=== PATIENT | female | born 1965 | race Caucasian/White ===

== ENCOUNTER 2017-09-12 23:10 | Inpatient (IN) ==
--- NOTE | 2017-09-12 23:14 | Emergency Department Note ---
Disposition Clinical Impression: Hypoxia, COPD exacerbation, Pulmonary nodule Dyspnea Qualifiers: Dyspnea type: unspecified Qualified Code(s): R06.00 - Dyspnea, unspecified Disposition: Admitted As Inpatient Condition: Good Time of Disposition: 02:12 General Adult HPI - General Chief complaint: ED Chest Pain Stated complaint: not feeling well Time Seen by Provider: 09/12/17 23:13 Source: patient Mode of arrival: ambulatory Limitations: no limitations Nursing Notes Reviewed: Yes Vital Signs Reviewed: Yes - History of Present Illness HPI Narrative: Patient is a 52-year-old female with past medical history of COPD. She presents today due to chest pain and shortness of breath. She states that over the past 2 days, she has had shortness of breath, cough, fevers. She also started having left-sided dull chest pain that radiates to her back. Rates it as 6 out of 10. Describes as a dull ache. Does not worsen with exertion. She rates it as a gradually worsening over the past 3 days. She is concerned that she could have pneumonia causing some of these symptoms. She has been taking Motrin at home every 6-8 hours for fever. She uses oxygen chronically, also uses daily inhalers. - Related Data Home Medications Medication Instructions Recorded Confirmed ALPRAZolam [Xanax 1 MG Tablet] 1 mg PO TID 12/29/15 09/13/17 Albuterol Sulfate [Ventolin Hfa] 1 - 2 puff IH Q6H PRN 12/29/15 09/13/17 Carisoprodol [Soma] 350 mg PO Q6H PRN 12/29/15 09/13/17 Gabapentin [Neurontin] 800 mg PO BID 12/29/15 09/13/17 cloNIDine HCl [CloNIDine HCl] 0.1 mg PO TID 12/29/15 09/13/17 Furosemide [Lasix] 10 mg PO DAILY 09/13/17 09/13/17 Promethazine [Phenergan] 25 mg PO TID PRN 09/13/17 09/13/17 Previous Rx's Medication Instructions Recorded Ondansetron ODT [Zofran ODT] 4 mg SL Q6HR PRN #10 tab.rapdis 12/10/16 Allergies Allergy/AdvReac Type Severity Reaction Status Date / Time azithromycin Allergy Hives Verified 12/04/15 14:22 codeine AdvReac Nausea Verified 12/04/15 14:22 ketorolac [From Toradol] AdvReac Nausea Verified 12/29/15 10:08 ivp dye Allergy Hives Uncoded 12/29/15 10:08 All systems ED: reviewed and negative except as stated. Constitutional: Reports: fever Cardiovascular: Reports: chest pain, dyspnea on exertion Respiratory: Reports: dyspnea Gastrointestinal: Reports: nausea. Denies: abdominal pain, vomiting, diarrhea Neurological: Denies: headache, weakness, numbness, paresthesias Past Medical History - Past Medical History Attestation: Yes The following information was validated with the patient. Source: patient Medical history: Reports: COPD, GERD, kidney stones Surgical history: Reports: appendectomy, cholecystectomy, hysterectomy Psychiatric history: Reports: anxiety - Social History Smoking Status: Current every day smoker Smokeless Tobacco Status: No Alcohol use: Reports: none Drug use: Reports: none Physical Exam - General Limitations: no limitations General appearance: alert, in no apparent distress - Head Head exam: atraumatic, normocephalic, normal inspection - Eye Eye exam: Present: normal appearance, PERRL, EOMI - ENT ENT exam: normal exam, normal oropharynx, mucous membranes moist - Neck Neck exam: Present: normal inspection, full ROM, trachea midline - Chest Chest inspection: Present: normal inspection, symmetric chest wall rise. Absent : tenderness, rash - Respiratory Respiratory exam: Present: other (Bronchitis and left lower lobe, wheezes throughout). Absent: stridor, accessory muscle use - Cardiovascular Cardiovascular exam: Present: normal rhythm, tachycardia, normal heart sounds - Abdominal Exam Abdominal exam: Present: soft, Non-Tender. Absent: tenderness, distention, guarding, rebound, rigidity - Extremities Exam Extremities exam: Present: normal inspection, full ROM. Absent: tenderness, pedal edema - Back Exam Back exam: Present: normal inspection, full ROM. Absent: tenderness - Neurological Exam Neurological exam: Present: alert, oriented X3 - Psychiatric Psychiatric exam: Present: normal affect, normal mood - Skin Skin exam: Present: warm, dry, intact, normal color Course Course Narrative: Patient had a temp of 100.6 on presentation. Was also tachycardic. She did have left lower lobe rhonchi, wheezing throughout. Patient has no previous history of IA or heart stents. With fever, cough, shortness of breath, dull chest wall pain, I do feel that this is more likely pneumonia in nature. We will give the patient DuoNeb, prednisone. Also obtain chest x-ray, EKG, troponin. Patient was given Tylenol for fever. 02:13 patient reassessed. She was turned down from 4 L down to 2 L nasal cannula and she dropped to 87%. She states that she usually only requires oxygen at night and does not require any during the day. She is still having some dyspnea. Chest x-ray showed nodular opacities that could be inflammatory in nature. These were discussed with the patient and recommended repeat imaging , likely CT scan in a few months for reassessment. Due to increased oxygen requirements, continued dyspnea, will admit the patient for COPD exacerbation and further care. We will give the patient a dose of Levaquin for COPD exacerbation. Chest X-Ray 09/12/17 23:25 IMPRESSION: Nodular opacities in the left mid to lower lung, which are not well visualized previously. Although those could be inflammatory, further evaluation with chest CT is recommended. D/ / Ben Silva MD / Ben Silva MD Interpreting Provider: Ben Silva MD Vital Signs Temperature 100.6 F H 09/12/17 23:17 Pulse Rate 100 09/12/17 23:17 Respiratory Rate 20 09/12/17 23:17 Blood Pressure 137/88 09/12/17 23:17 O2 Sat by Pulse Oximetry 86 09/12/17 23:17 Temperature 98.6 F 09/13/17 03:43 Pulse Rate 78 09/13/17 03:43 Respiratory Rate 18 09/13/17 03:43 Blood Pressure 113/95 09/13/17 03:43 O2 Sat by Pulse Oximetry 92 09/13/17 03:43 Oxygen Delivery Oxygen Delivery Room Air Medical Decision Making - MDM Narrative Medical decision making narrative: Patient had a temp of 100.6 on presentation. Was also tachycardic. She did have left lower lobe rhonchi, wheezing throughout. Patient has no previous history of IA or heart stents. With fever, cough, shortness of breath, dull chest wall pain, I do feel that this is more likely pneumonia in nature. We will give the patient DuoNeb, prednisone. Also obtain chest x-ray, EKG, troponin. Patient was given Tylenol for fever. 02:13 patient reassessed. She was turned down from 4 L down to 2 L nasal cannula and she dropped to 87%. She states that she usually only requires oxygen at night and does not require any during the day. She is still having some dyspnea. Chest x-ray showed nodular opacities that could be inflammatory in nature. These were discussed with the patient and recommended repeat imaging , likely CT scan in a few months for reassessment. Due to increased oxygen requirements, continued dyspnea, will admit the patient for COPD exacerbation and further care. We will give the patient a dose of Levaquin for COPD exacerbation. - Medical Records Medical records reviewed: Yes I reviewed the patient's medical records. - Lab Data Lab results reviewed: Yes I reviewed the patient's lab results. Result diagrams: 09/12/17 23:35 09/13/17 00:52 Lab Results 09/12/17 09/12/17 09/12/17 Range/Units 23:23 23:25 23:35 WBC 9.9 (4.3-11.1) K/mcL RBC 4.27 (3.82-4.97) M/mcL Hgb 14.1 (11.5-15.4) g/dL Hct 42.5 (35.3-44.9) % MCV 99.5 (83.0-100.0) fL MCH 33.0 (28.0-33.3) pg MCHC 33.2 (31.6-35.5) g/dL RDW 13.1 (11.5-14.5) % Plt Count 190 (140-400) K/mcL MPV 10.3 (9.4-12.4) fL Immature Gran % 0.3 (0-4) % Seg Neutrophils % 75.3 % Lymphocytes % 12.9 % Monocytes % 11.1 % Eosinophils % 0.0 % Basophils % 0.4 % Neutrophils # 7.4 (1.6-8.9) K/mcL Lymphocytes # 1.3 (0.6-4.6) K/mcL Monocytes # 1.1 (0.0-1.3) K/mcL Eosinophils # 0.0 (0.0-0.6) K/mcL Basophils # 0.0 (0.0-0.2) K/mcL PT 12.0 (9.4-12.1) Seconds INR 1.1 APTT 31.9 (26.0-36.0) Seconds Sodium Potassium Chloride Carbon Dioxide BUN Creatinine Est GFR ( Amer) Est GFR (Non-Af Amer) BUN/Creatinine Ratio Glucose Calculated Osmolality Calcium Troponin I (< 0.04) ng/mL Urine Color Yellow (Yellow) Urine Clarity Clear (Clear) Urine pH 6.5 (5.0-8.0) pH Units Ur Specific [place] 1.019 (1.010-1.025) Urine Protein 30 H (Neg-Trace) mg/dL Urine Glucose (UA) Normal (Normal) mg/dL Urine Ketones Trace H (Negative) mg/dL Urine Blood Negative (Negative) Urine Nitrite Negative (Negative) Urine Bilirubin Small H (Negative) Urine Urobilinogen Normal (Normal) mg/dL Ur Leukocyte Esterase Negative (Negative) Urine Microscopic RBC 15-30 H (0-3) per hpf Urine Microscopic WBC 3-5 H (0-3) per hpf Ur Squamous Epith Cells Many H (None-Few) per lpf Urine Bacteria None Seen (None-Few) per hpf Hyaline Casts None Seen (None-Few) per lpf 09/12/17 09/13/17 Range/Units 23:35 00:52 WBC (4.3-11.1) K/mcL RBC (3.82-4.97) M/mcL Hgb (11.5-15.4) g/dL Hct (35.3-44.9) % MCV (83.0-100.0) fL MCH (28.0-33.3) pg MCHC (31.6-35.5) g/dL RDW (11.5-14.5) % Plt Count (140-400) K/mcL MPV (9.4-12.4) fL Immature Gran % (0-4) % Seg Neutrophils % % Lymphocytes % % Monocytes % % Eosinophils % % Basophils % % Neutrophils # (1.6-8.9) K/mcL Lymphocytes # (0.6-4.6) K/mcL Monocytes # (0.0-1.3) K/mcL Eosinophils # (0.0-0.6) K/mcL Basophils # (0.0-0.2) K/mcL PT (9.4-12.1) Seconds INR APTT (26.0-36.0) Seconds Sodium Cancelled 139 Potassium Cancelled 2.7 L Chloride Cancelled 100 Carbon Dioxide Cancelled 28 BUN Cancelled 7 Creatinine Cancelled 0.64 Est GFR ( Amer) Cancelled > 60 Est GFR (Non-Af Amer) Cancelled > 60 BUN/Creatinine Ratio Cancelled 11 Glucose Cancelled 134 H Calculated Osmolality Cancelled 288 Calcium Cancelled 8.5 L Troponin I < 0.03 (< 0.04) ng/mL Urine Color (Yellow) Urine Clarity (Clear) Urine pH (5.0-8.0) pH Units Ur Specific [place] (1.010-1.025) Urine Protein (Neg-Trace) mg/dL Urine Glucose (UA) (Normal) mg/dL Urine Ketones (Negative) mg/dL Urine Blood (Negative) Urine Nitrite (Negative) Urine Bilirubin (Negative) Urine Urobilinogen (Normal) mg/dL Ur Leukocyte Esterase (Negative) Urine Microscopic RBC (0-3) per hpf Urine Microscopic WBC (0-3) per hpf Ur Squamous Epith Cells (None-Few) per lpf Urine Bacteria (None-Few) per hpf Hyaline Casts (None-Few) per lpf - Radiology Data Radiology results reviewed: Yes I reviewed the patient's radiology results. - EKG Data EKG #1 EKG attestation: Yes I reviewed and interpreted this EKG. EKG results narrative: 09/12/2017 at 23:21. No sinus rhythm. Rate 92. AL 134. QRS 87. QTC 348. ST depression in the 3 through V6 that is present on previous EKG on 12/04/2015. No acute ST elevation or depression. Critical Care Time Critical Care Time: Yes Total Critical Care Time: 32 Attestation: Acute hypoxia w/ respiratory distress requiring oxygen supplemental oxygenation ; S.B.A.R. - S.B.A.R. Situation: Demographics, MOA Background: Presenting Complaint, Relevant PMH, Meds, & Allergies Assessment: Vital Signs, Course and respsone to treatment, Exam Concerns, Patient/Family Expectation, Pertinant Lab Results Recommendation: Barrier(s) to disposition, Recommendation based on pending studies, treatments, or consults S.B.A.R. Report Given to: Dr. Radha Li Repor Time: 02:19 Attestation Statement - Attestation Attestation: DR Vazquez note: Pt seen in conjunction w/ resident Dr Odell; Please see his chart for complete documentation; I spent face to face time w/ the patient and agree w/ the pt's treatment and disposition; No focal pneumonia on x ray; pt is only on 2 liters oxygen @ night; pt continues to smoke; cough w/ sputum production for 3- 4 days ; no chest pain @ this time;
[2017-09-12 23:31] LABS: Bilirubin,Urine Small (Negative); Blood,Urine Negative (Negative); Clarity,Urine Clear (Clear); Color,Urine Yellow (Yellow); Glucose,Urine (UA) Normal (Normal); Ketones,Urine Trace mg/dL (Negative); Leukocyte Esterase,Urine Negative (Negative); Nitrite,Urine Negative (Negative); PH,Urine 6.5 pH Units (5.0-8.0); Protein,Urine 30 mg/dL (Neg-Trace); Specific Gravity,Urine 1.019 (1.010-1.025); Urobilinogen,Urine Normal (Normal)
[2017-09-12 23:34] LABS: Bacteria,Urine None Seen per hpf (None-Few); Hyaline Casts,Urine None Seen per lpf (None-Few); RBC,Urine 15-30 per hpf (0-3); Squamous Epithelial Cell,Urine Many per lpf (None-Few)
[2017-09-12] MEDS ORDERED: Ipratropium/Albuterol Neb 3 ML IH ONE (23:41)
[2017-09-12] MEDS ORDERED: predniSONE 20 MG TABLET PO ONE (23:41)
[2017-09-13 00:11] LABS: Basophils % 0.4 %; Hematocrit 42.5 % (35.3-44.9); Hemoglobin 14.1 g/dL (11.5-15.4); Immature Granulocytes % 0.3 % (0-4); Lymphocytes # 1.3 K/mcL (0.6-4.6); Lymphocytes % 12.9 %; Mean Corpuscular HGB Conc 33.2 g/dL (31.6-35.5); Mean Corpuscular Volume 99.5 fL (83.0-100.0); Mean Platelet Volume 10.3 fL (9.4-12.4); Monocytes # 1.1 K/mcL (0.0-1.3); Monocytes % 11.1 %; Neutrophils # 7.4 K/mcL (1.6-8.9); Platelet Count 190 K/mcL (140-400); Red Blood Count 4.27 M/mcL (3.82-4.97); Red Cell Distribution Width 13.1 % (11.5-14.5); Segmented Neutrophils % 75.3 %
[2017-09-13 00:16] LABS: INR 1.1
[2017-09-13 00:19] LABS: Activated Partial Thrombo Time 31.9 Seconds (26.0-36.0)
[2017-09-13 01:20] LABS: BUN/Creatinine Ratio 11 (6-26); Blood Urea Nitrogen 7 mg/dL (6-20); Calcium 8.5 mg/dL (8.6-10.3); Carbon Dioxide 28 mEq/L (23-29); Chloride 100 mEq/L (98-107); Glucose 134 mg/dL (70-105); Osmolality,Calculated 288 (280-300); Potassium 2.7 mEq/L (3.5-5.1); Sodium 139 mEq/L (136-145); eGFR For African Americans > 60 (> 60); eGFR For Non-African Americans > 60 (> 60)
[2017-09-13] MEDS ORDERED: Azithromycin 250 MG TABLET PO ONE (02:12)
[2017-09-13] MEDS ORDERED: levoFLOXacin 500 MG TABLET PO ONE (02:19)
[2017-09-13] MEDS ORDERED: Albuterol 2.5 MG/3 ML NEBULIZER IH PRN (02:21)
[2017-09-13] MEDS ORDERED: Naloxone 0.4 MG/ML INJ IVP PRN (02:25)
--- NOTE | 2017-09-13 02:31 | Internal Med History&Physical ---
Date of Encounter: 09/13/17 Time of Encounter: 03:43 Internal Medicine - H&P: HPI Chief complaint: Cough,, fever, SOB Admitted From: Home Plans for Post Hospital Care: Home History of present illness: Ms. Gomes is a 52 year old female with PMH of COPD , tobacco abuse who presented with complains of 3 days of rhinorrhea, followed by cough, now productive of yelowish sputum. She also reports fevers at home requiring use of OTC RTC. She reports SOB and pleuritic chest pain L>R. She did not feel relieved by using OTC allergy medications and decided to present to the ER. She is found to be hypoxic in the ER and febrile. Work up shows bilateral infectious/inflammatory nodules, suspicion for pneumonia. EKG is unremarkable for ischemic changes Patient will be admitted and managed for same ROS is otherwise non-contributory Past Med Surg Social Fam HX - Past Medical History Medical history: COPD, GERD, kidney stones Psychiatric history: anxiety - Past Surgical History Surgical History: appendectomy, cholecystectomy, hysterectomy - Social History Smoking Status: Current every day smoker Smokeless Tobacco Status: No Alcohol use: none Drug use: none Internal Medicine - H&P: Meds ALPRAZolam [Xanax 1 MG Tablet] 1 mg PO TID 12/29/15 [History] Albuterol Sulfate [Ventolin Hfa] 1 - 2 puff IH Q6H PRN 12/29/15 [History] Carisoprodol [Soma] 350 mg PO Q6H PRN 12/29/15 [History] Gabapentin [Neurontin] 800 mg PO BID 12/29/15 [History] cloNIDine HCl [CloNIDine HCl] 0.1 mg PO TID 12/29/15 [History] Ondansetron ODT [Zofran ODT] 4 mg SL Q6HR PRN #10 tab.rapdis 12/10/16 [Rx] Furosemide [Lasix] 10 mg PO DAILY 09/13/17 [History] Promethazine [Phenergan] 25 mg PO TID PRN 09/13/17 [History] 3 Allergy/AdvReac Type Severity Reaction Status Date / Time azithromycin Allergy Hives Verified 12/04/15 14:22 codeine AdvReac Nausea Verified 12/04/15 14:22 ketorolac [From Toradol] AdvReac Nausea Verified 12/29/15 10:08 ivp dye Allergy Hives Uncoded 12/29/15 10:08 All Systems PM: A 10-system review of systems was performed and is negative for pertinent findings except as documented above in the HPI. - Constitutional Constitutional: chills, fever(s), lethargy - EENT Eyes: no change in vision, no discharge, no pain, no photophobia Ears: as per HPI Nose, mouth and throat: no dysphagia, no nasal discharge, no neck pain, no sore throat - Cardiovascular Cardiovascular ROS IM: chest pain - Respiratory Respiratory: cough, dyspnea - Gastrointestinal Gastrointestinal: no abdominal pain, no diarrhea, no hematemesis, no hematochezia, no melena, no nausea, no vomiting - Genitourinary Genitourinary: no change in urinary stream, no dysuria, no flank pain, no hematuria - Musculoskeletal Musculoskeletal ROS IM: no numbness, no tingling - Integumentary Integumentary IM: no rash, no unusual bruising - Neurological Neurological ROS: no confusion, no convulsions, no focal weakness, no numbness, no tingling, no tremor(s) - Hematologic/Lymphatic Hematologic/Lymphatic: no easy bruising - Constitutional Vitals: Temp Pulse Resp BP Pulse Ox 100.6 F H 77 18 110/76 95 09/12/17 23:17 09/13/17 02:22 09/13/17 02:22 09/13/17 02:22 09/13/17 02:22 General appearance: Present: mild distress, A&O X 3, pleasant - Head Head exam: Present: atraumatic, normocephalic - Eye Eye exam: Present: PERRL, conjuntiva pink, sclera anicteric Pupils: Present: PERRL - Neck Neck exam general surgery: Present: supple, trachea midline. Absent: lymphadenopathy - Respiratory Respiratory exam: Present: rhonchi (R>L), wheezes - Cardiovascular Cardiovascular exam: Present: RRR, +S1, +S2. Absent: diastolic murmur, gallop, rubs, systolic murmur - GI/Abdominal GI/Abdominal exam: Present: normal bowel sounds, soft, no peritoneal signs. Absent: distended, tenderness - Extremities Exam Extremities exam: Present: warm, radial pulses palpable and symmetrical. Absent : calf tenderness, cyanotic, pedal edema - Neurological Exam Neurological exam: Present: alert, CN II-XII intact, oriented X3, no focal deficits. Absent: pronater drift, facial droop, speech deficit - Skin Skin exam: Present: dry, intact Internal Med - H&P Results - Labs CBC & Chem 7: 09/12/17 23:35 09/13/17 00:52 Labs: Short CBC 09/12/17 Range/Units 23:35 WBC 9.9 (4.3-11.1) K/mcL Hgb 14.1 (11.5-15.4) g/dL Hct 42.5 (35.3-44.9) % Plt Count 190 (140-400) K/mcL Neutrophils # 7.4 (1.6-8.9) K/mcL BMP 09/12/17 09/13/17 23:35 00:52 Sodium Cancelled 139 Potassium Cancelled 2.7 L Chloride Cancelled 100 Carbon Dioxide Cancelled 28 BUN Cancelled 7 Creatinine Cancelled 0.64 Glucose Cancelled 134 H Calcium Cancelled 8.5 L Cardiac Enzymes 09/12/17 Range/Units 23:35 Troponin I < 0.03 (< 0.04) ng/mL Urine 09/12/17 Range/Units 23:23 Urine Color Yellow (Yellow) Urine Clarity Clear (Clear) Urine pH 6.5 (5.0-8.0) pH Units Ur Specific [place] 1.019 (1.010-1.025) Urine Protein 30 H (Neg-Trace) mg/dL Urine Glucose (UA) Normal (Normal) mg/dL - Impressions ITS Impressions Chest X-Ray 09/12/17 23:25 IMPRESSION: Nodular opacities in the left mid to lower lung, which are not well visualized previously. Although those could be inflammatory, further evaluation with chest CT is recommended. D/ / Ben Silva MD / Ben Silva MD Interpreting Provider: Ben Silva MD - Assessment and plan (1) Sepsis Current Visit: Yes Status: Acute Assessment and plan: Patient met sepsis criteria with HR 100 on presentation, Temp 100.6, and source being multifocal PNA She is requring higher dose of supplemental O2 but is hemodynamically stable Blood cultures not drawn Obtain sputum cultures, Obtain urine for legionella and strept Ag Give additional dose of levaquin 250mg IV, continue IV Levaquin 750mg IV daily from 09/14 Continue supportive care Qualifiers: Sepsis type: sepsis due to unspecified organism Qualified Code(s): A41.9 - Sepsis, unspecified organism (2) Pneumonia Current Visit: Yes Status: Acute Assessment and plan: as above CT with multiple nodules, likely infectious with patient's hx of fevers and chills, cough with sputum as well as recent sick contacts Continue levaquin Follow PNA work up as above Qualifiers: Pneumonia type: due to unspecified organism Laterality: left Lung location: unspecified part of lung Qualified Code(s): J18.9 - Pneumonia, unspecified organism (3) COPD exacerbation Current Visit: Yes Status: Acute Assessment and plan: Duonebs q4 TITUS, alb q2h prn, prednusone daily, levaquin O2 supplement continuous (4) Hypoxia Current Visit: Yes Status: Acute Assessment and plan: secondary to PNA and COPDE Continue supplemental O2 by NC (5) Hypokalemia Current Visit: Yes Status: Acute Assessment and plan: replace po rpt chem am (6) Pulmonary nodule Current Visit: Yes Status: Acute Assessment and plan: Multiple pulmonary nodules, possibly infectious due to PNA Patient educated about the need repeat chest CT on outpatient basis after completion of pneumonia treatment. (7) Tobacco abuse Current Visit: Yes Status: Acute Assessment and plan: Counselled on cessation Nicotine patch - Time Spent With Patient Total time spent is greater than 50% in coordination of care (as documented) at patient's floor/unit and/or counseling patient:
[2017-09-13] MEDS ORDERED: Levofloxacin 250 MG/50 ML 250 MG/50 ML BAG IVPB ONE (03:28)
[2017-09-13] MEDS: Ipratropium/Albuterol Neb 3 ML IH SCH ×4 (04:09→22:30)
[2017-09-13 06:14] LABS: Basophils % 0.2 %; Hematocrit 42.5 % (35.3-44.9); Immature Granulocytes % 0.3 % (0-4); Lymphocytes # 0.4 K/mcL (0.6-4.6); Lymphocytes % 5.9 %; Mean Corpuscular HGB Conc 32.9 g/dL (31.6-35.5); Mean Corpuscular Hemoglobin 33.2 pg (28.0-33.3); Mean Corpuscular Volume 100.7 fL (83.0-100.0); Monocytes # 0.1 K/mcL (0.0-1.3); Monocytes % 2.1 %; Neutrophils # 6.1 K/mcL (1.6-8.9); Platelet Count 169 K/mcL (140-400); Red Blood Count 4.22 M/mcL (3.82-4.97); Red Cell Distribution Width 12.9 % (11.5-14.5); Segmented Neutrophils % 91.5 %
[2017-09-13 06:30] LABS: Alanine Aminotransferase 5 Units/L (7-52); Albumin 4.1 g/dL (3.5-5.7); Albumin/Globulin Ratio 1.2 (1.1-2.2); Alkaline Phosphatase 74 Units/L (34-104); Aspartate Amino Transferase 12 Units/L (13-39); BUN/Creatinine Ratio 11 (6-26); Bilirubin,Total 0.2 mg/dL (0.3-1.0); Blood Urea Nitrogen 8 mg/dL (6-20); Calcium 8.6 mg/dL (8.6-10.3); Carbon Dioxide 30 mEq/L (23-29); Chloride 101 mEq/L (98-107); Globulin 3.4 g/dL (2.4-3.5); Glucose 173 mg/dL (70-105); Osmolality,Calculated 290 (280-300); Potassium 2.9 mEq/L (3.5-5.1); Sodium 139 mEq/L (136-145); Total Protein 7.5 g/dL (6.4-8.9); eGFR For African Americans > 60 (> 60); eGFR For Non-African Americans > 60 (> 60)
[2017-09-13] MEDS: *HR* Enoxaparin 40 MG/0.4 ML SYRINGE SQ SCH (06:51)
[2017-09-13] MEDS: Nicotine 21 MG PATCH.TD24 TD SCH (09:18)
[2017-09-13] MEDS: ALPRAZolam 1 MG TABLET PO SCH ×3 (09:18→20:06)
[2017-09-13] MEDS: Gabapentin 400 MG CAPSULE PO SCH ×2 (09:19→20:07)
[2017-09-13] MEDS: Furosemide 20 MG TABLET PO SCH (09:19)
[2017-09-13] MEDS: cloNIDine HCl 0.1 MG TABLET PO SCH ×3 (09:19→20:06)
[2017-09-13] MEDS: predniSONE 20 MG TABLET PO SCH (09:19)
[2017-09-13] MEDS: Acetaminophen 325 MG TABLET PO PRN ×2 (09:21→20:10)
--- NOTE | 2017-09-13 09:34 | Internal Med History&Physical ---
Date of Encounter: 09/13/17 Time of Encounter: 08:00 Internal Medicine - H&P: HPI History of present illness: Ms. Gomes is a 52 year old female Past Med Surg Social Fam HX - Past Medical History Medical history: COPD, GERD, kidney stones Psychiatric history: anxiety - Past Surgical History Surgical History: appendectomy, cholecystectomy, hysterectomy - Social History Smoking Status: Current every day smoker Smokeless Tobacco Status: No Alcohol use: none Drug use: none - Family History Mother History Unknown: Yes Internal Medicine - H&P: Meds ALPRAZolam [Xanax 1 MG Tablet] 1 mg PO TID 12/29/15 [History] Albuterol Sulfate [Ventolin Hfa] 1 - 2 puff IH Q6H PRN 12/29/15 [History] Carisoprodol [Soma] 350 mg PO Q6H PRN 12/29/15 [History] Gabapentin [Neurontin] 800 mg PO BID 12/29/15 [History] cloNIDine HCl [CloNIDine HCl] 0.1 mg PO TID 12/29/15 [History] Ondansetron ODT [Zofran ODT] 4 mg SL Q6HR PRN #10 tab.rapdis 12/10/16 [Rx] Furosemide [Lasix] 10 mg PO DAILY 09/13/17 [History] Ibuprofen [Motrin] 200 - 400 mg PO Q4-6H PRN 09/13/17 [History] Promethazine [Phenergan] 25 mg PO TID PRN 09/13/17 [History] 3 Allergy/AdvReac Type Severity Reaction Status Date / Time azithromycin Allergy Hives Verified 09/13/17 08:48 codeine AdvReac Nausea Verified 09/13/17 08:48 ketorolac [From Toradol] AdvReac Nausea Verified 09/13/17 08:48 ivp dye Allergy Hives Uncoded 12/29/15 10:08 All Systems PM: A 10-system review of systems was performed and is negative for pertinent findings except as documented above in the HPI. - Constitutional Constitutional: no chills, no fever(s), no night sweats - Cardiovascular Cardiovascular ROS IM: no chest pain, no diaphoresis, no edema, no lightheadedness, no palpitations, no syncope - Respiratory Respiratory: cough, dyspnea on exertion, pain on inspiration (mild inspiratory pain), no wheezing, no stridor, no chest congestion - Gastrointestinal Gastrointestinal: no abdominal pain, no diarrhea, no hematemesis, no hematochezia, no melena, no nausea, no vomiting - Integumentary Integumentary IM: no rash, no unusual bruising - Constitutional Vitals: Temp Pulse Resp BP Pulse Ox 98.6 F 79 15 118/79 93 09/13/17 07:43 09/13/17 07:43 09/13/17 07:43 09/13/17 07:43 09/13/17 07:43 General appearance: Present: mild distress, A&O X 3, pleasant - Eye Eye exam: Present: PERRL - Respiratory Respiratory exam: Present: CTAB (diminished/clear), prolonged expiratory phase. Absent: accessory muscle use, chest wall tenderness, rales, respiratory distress, rhonchi, wheezes, tachypnea Additional comments: no conversational dyspnea - Cardiovascular Cardiovascular exam: Present: RRR, +S1, +S2. Absent: diastolic murmur, gallop, rubs, systolic murmur, tachycardia - GI/Abdominal GI/Abdominal exam: Present: normal bowel sounds, soft, no peritoneal signs. Absent: distended, tenderness - Extremities Exam Extremities exam: Present: warm, radial pulses palpable and symmetrical. Absent : calf tenderness, cyanotic, pedal edema - Neurological Exam Neurological exam: Absent: facial droop, speech deficit - Skin Skin exam: Present: dry, intact Internal Med - H&P Results - Labs CBC & Chem 7: 09/13/17 05:14 09/13/17 05:14 Labs: Short CBC 09/13/17 Range/Units 05:14 WBC 6.7 (4.3-11.1) K/mcL Hgb 14.0 (11.5-15.4) g/dL Hct 42.5 (35.3-44.9) % Plt Count 169 (140-400) K/mcL Neutrophils # 6.1 (1.6-8.9) K/mcL BMP 09/13/17 05:14 Sodium 139 Potassium 2.9 L Chloride 101 Carbon Dioxide 30 H BUN 8 Creatinine 0.71 Glucose 173 H Calcium 8.6 Liver Function 09/13/17 Range/Units 05:14 Total Bilirubin 0.2 L (0.3-1.0) mg/dL AST 12 L (13-39) Units/L ALT 5 L (7-52) Units/L Alkaline Phosphatase 74 (34-104) Units/L Albumin 4.1 (3.5-5.7) g/dL - Impressions Impressions Chest X-Ray 09/12/17 23:25 IMPRESSION: Nodular opacities in the left mid to lower lung, which are not well visualized previously. Although those could be inflammatory, further evaluation with chest CT is recommended. D/ / Ben Silva MD / Ben Silva MD Interpreting Provider: Ben Silva MD Chest CT 09/13/17 02:21 IMPRESSION: 1. Scattered subsolid pulmonary nodules are most likely infectious or inflammatory. Follow-up CT scan could be obtained in 3-6 months. 2. Coronary artery disease. 3. Emphysema. D/ / Francisco Davies MD / Francisco Davies MD Interpreting Provider: Francisco Davies MD - Assessment and plan (1) Sepsis Current Visit: Yes Status: Acute Qualifiers: Sepsis type: sepsis due to unspecified organism Qualified Code(s): A41.9 - Sepsis, unspecified organism (2) Hypoxia Current Visit: Yes Status: Acute (3) COPD exacerbation Current Visit: Yes Status: Acute (4) Pulmonary nodule Current Visit: Yes Status: Acute (5) Pneumonia Current Visit: Yes Status: Acute Qualifiers: Pneumonia type: due to unspecified organism Laterality: left Lung location: unspecified part of lung Qualified Code(s): J18.9 - Pneumonia, unspecified organism (6) Hypokalemia Current Visit: Yes Status: Acute (7) Tobacco abuse Current Visit: Yes Status: Acute - Time Spent With Patient Total time spent is greater than 50% in coordination of care (as documented) at patient's floor/unit and/or counseling patient:
--- NOTE | 2017-09-13 10:55 | Event Note ---
Date of Encounter: 09/13/17 Time of Encounter: 08:00 Patient presented early this morning with cough productive of yellow sputum and pleuritic chest pain left greater than right and shortness of breath. She was hypoxic on arrival, CT chest revealed multiple nodules likely infectious. She was diagnosed with sepsis secondary to pneumonia She is no longer requiring high flow oxygen mask for respiratory support and reports that her shortness of breath has improved compared to admission. However, she notes that she is still mildly short of breath and that the dyspnea is worsened with activity. No events overnight. She denies any fever or chills. She is still having mild pleuritic chest pain L>R REVIEW OF SYSTEMS GENERAL: Negative for any fevers or chills HEENT: Positive for rhinitis. CARDIAC: Positive for pleuritic chest pain reporting increasing chest pain with inspiration PULMONARY: Positive for mild shortness of breath, worsens with activity GASTROINTESTINAL: Negative for any abdominal pain, nausea, vomiting, bright red blood per rectum, melena. GENITOURINARY: Negative for any dysuria, hematuria, incontinence. INTEGUMENTARY: Negative for any rashes, cuts, insect bites. RHEUMATOLOGIC: Negative for any joint pains, photosensitive rashes, history of vasculitis or kidney problems. HEMATOLOGIC: Negative for any abnormal bruising, frequent infections or bleeding. PHYSICAL EXAMINATION: GENERAL: The patient is a well-developed, well-nourished male in no apparent distress. He is alert and oriented x3. HEENT: Head is atraumatic. Extraocular muscles are intact. Pupils are equal, round, and reactive to light and accommodation. Nares appeared normal, no rhinorrhea noted. NECK: Supple. No carotid bruits. No lymphadenopathy or thyromegaly. LUNGS: diminished to auscultation with rhonchi, R>L. HEART: Regular rate and rhythm without murmur rubs or gallops. ABDOMEN: Soft, nontender, and nondistended. Positive bowel sounds. No hepatosplenomegaly was noted. EXTREMITIES: Without any cyanosis, clubbing, rash, lesions or edema. NEUROLOGIC: Cranial nerves II through XII are grossly intact SKIN: No ulceration, rashes or lesions Plan: Sepsis secondary to PNA and COPD exacerbation Hemodynamically stable, heart rate and respiratory rate no improved, she is afebrile Continue antibiotics-Levaquin Continue duo nebs Continue oral steroids Lovenox DVT prophylaxis Decrease oxygen from high flow oxygen mask to 2 L nasal cannula Goals to maintain SPO2 greater than 92%; titrate oxygen flow rate when necessary Still awaiting strep pneumo, Legionella antigen and sputum culture results Hypoxia See plan above Hypokalemia Potassium replaced early this morning, no repeat serum potassium since replacement Recheck serum potassium this afternoon and replace when necessary for potassium less than 3.5 Pulmonary nodule Pulmonary nodule noted per CT, likely infectious etiology due to pneumonia Reinforced patient education on need for follow-up CT on outpatient basis after completion for pneumonia treatment
[2017-09-13] MEDS: Carisoprodol 350 MG TABLET PO PRN ×2 (11:24→20:06)
--- NOTE | 2017-09-13 15:19 | Electrocardiograph Report ---
[address] [place] [address] Test Date: 2017-09-12 Pat Name: Elizabet Gomes Department: [id number] Room: 2NE29 Gender: F Security Systems Engineer: : [id number] Requested By: Subhash Odell Order Number: [id number] Reading MD: Fani Redd Measurements Intervals [place] Rate: 92 P: 70 LA: 134 QRS: 22 QRSD: 87 T: 248 QT: 298 QTc: 348 Interpretive Statements SINUS RHYTHM NONSPECIFIC ST & T-WAVE ABNORMALITY Electronically Signed On 09-13-2017 15:18:04 EDT by Fani Redd
[2017-09-14] MEDS: Carisoprodol 350 MG TABLET PO PRN ×2 (04:11→22:18)
[2017-09-14] MEDS: Ipratropium/Albuterol Neb 3 ML IH SCH ×4 (04:44→23:03)
[2017-09-14] MEDS: *HR* Enoxaparin 40 MG/0.4 ML SYRINGE SQ SCH (05:51)
[2017-09-14] MEDS: Furosemide 20 MG TABLET PO SCH (08:29)
[2017-09-14] MEDS: Gabapentin 400 MG CAPSULE PO SCH ×2 (08:29→22:15)
[2017-09-14] MEDS: cloNIDine HCl 0.1 MG TABLET PO SCH ×3 (08:29→22:15)
[2017-09-14] MEDS: predniSONE 20 MG TABLET PO SCH (08:29)
[2017-09-14] MEDS: Nicotine 21 MG PATCH.TD24 TD SCH (08:29)
[2017-09-14] MEDS: ALPRAZolam 1 MG TABLET PO SCH ×3 (08:29→22:15)
[2017-09-14] MEDS: Levofloxacin 750 MG/150 ML 750 MG/150 ML BAG IVPB SCH (08:30)
[2017-09-14] MEDS ORDERED: Levofloxacin 500 MG/100 ML 500 MG/100 ML BAG IVPB SCH (09:00)
--- NOTE | 2017-09-14 09:11 | Internal Med Progress Note ---
Date of Encounter: 09/14/17 Time of Encounter: 08:45 - Assessment and plan (1) Pneumonia Current Visit: Yes Status: Acute Assessment and plan: as above CT with multiple nodules, likely infectious with patient's hx of fevers and chills, cough with sputum as well as recent sick contacts Continue levaquin Follow PNA work up as above 09/14: Acute bacterial community acquired pneumonia. As mentioned, day #2 of a planned 7 day course of Levaquin. Await any culture data. I do not see blood cultures performed. I will order now. Qualifiers: Pneumonia type: due to unspecified organism Laterality: left Lung location: unspecified part of lung Qualified Code(s): J18.9 - Pneumonia, unspecified organism (2) Sepsis Current Visit: Yes Status: Acute Assessment and plan: Patient met sepsis criteria with HR 100 on presentation, Temp 100.6, and source being multifocal PNA She is requring higher dose of supplemental O2 but is hemodynamically stable Blood cultures not drawn Obtain sputum cultures, Obtain urine for legionella and strept Ag Give additional dose of levaquin 250mg IV, continue IV Levaquin 750mg IV daily from 09/14 Continue supportive care 09/14: Resolving. Blood cultures now ordered (not done on admission). I do not see a Lactic acid level and one is ordered now. Qualifiers: Sepsis type: sepsis due to unspecified organism Qualified Code(s): A41.9 - Sepsis, unspecified organism (3) Hypoxia Current Visit: Yes Status: Acute Assessment and plan: secondary to PNA and COPDE Continue supplemental O2 by [place] 09/14: 42-year-old female with a history of COPD, presents with acute on chronic hypoxemic respiratory failure felt to be due to combined acute bacterial community acquired pneumonia and an acute COPD exacerbation. She reports being exposed to ill children at home. She does have oxygen at home but only uses it occasionally. Patient is day #2 of a planned 7 day course of Levaquin. He continues on prednisone 40 mg by mouth daily. Bronchodilator therapy. I will add Mucinex. She does have pedal edema but I do not suspect she has CHF. She has no history of such. I did stop her Lasix today and will encourage oral intake. Monitor closely. (4) COPD exacerbation Current Visit: Yes Status: Acute Assessment and plan: Duonebs q4 TITUS, alb q2h prn, prednusone daily, levaquin O2 supplement continuous 09/14: As above. Mucolytic added. Acute exacerbation of COPD Discussed with the patient the fact that she absolutely needs to quit smoking. (5) Pulmonary nodule Current Visit: Yes Status: Acute Assessment and plan: Multiple pulmonary nodules, possibly infectious due to PNA Patient educated about the need repeat chest CT on outpatient basis after completion of pneumonia treatment. 09/14: Will need a follow-up chest x-ray in 4 weeks upon discharge from the hospital, and as mentioned above will likely need a follow-up CT as well in 3-6 months. (6) Hypokalemia Current Visit: Yes Status: Acute Assessment and plan: replace po rpt chem am 09/14: Monitor (7) Tobacco abuse Current Visit: Yes Status: Acute Assessment and plan: Counselled on cessation Nicotine patch 09/14: She was counseled today and cessation strongly recommended. I consultation for 10 minutes. She is motivated to quit. - Time Spent With Patient Total time spent is greater than 50% in coordination of care (as documented) at patient's floor/unit and/or counseling patient: 25 - 35 minutes - Subjective Interval history: Ms. Gomes is a 52 year old female with PMH of COPD , tobacco abuse who presented with complains of 3 days of rhinorrhea, followed by cough, now productive of yelowish sputum. She also reports fevers at home requiring use of OTC RTC. She reports SOB and pleuritic chest pain L>R. She did not feel relieved by using OTC allergy medications and decided to present to the ER. She is found to be hypoxic in the ER and febrile. Work up shows bilateral infectious/inflammatory nodules, suspicion for pneumonia. EKG is unremarkable for ischemic changes Patient will be admitted and managed for same ROS is otherwise non-contributory 09/14: CC: SOB HPI: Patient states her breathing is much improved this morning. She still has wheezing. She has a cough which is dry and nonproductive. She denies any chest pain. No fevers or chills. No nausea, vomiting, diarrhea. She does complain of pedal edema which is not a new issue. Patient remains on 4 L of oxygen per nasal cannula satting 91%. She has been afebrile since admission. Vitals have remained stable. Review of her CT on admission showed multiple pulmonary nodules concerning for infection. This will need to be followed up as an outpatient. - Constitutional Vitals: Temp Pulse Resp BP Pulse Ox 98.1 F 70 18 111/65 91 09/14/17 07:03 09/14/17 07:03 09/14/17 07:03 09/14/17 07:03 09/14/17 07:03 General appearance: Present: cooperative, mild distress (full sentence dyspnea) , A&O X 3, pleasant - Head Head exam: Present: atraumatic, normocephalic - Eye Eye exam: Present: PERRL, conjuntiva pink, sclera anicteric Pupils: Present: PERRL - Neck Neck exam general surgery: Present: supple, trachea midline. Absent: lymphadenopathy - Respiratory Respiratory exam: Present: decreased breath sounds, rales, wheezes - Cardiovascular Cardiovascular exam: Present: RRR, +S1, +S2. Absent: diastolic murmur, gallop, rubs, systolic murmur - GI/Abdominal GI/Abdominal exam: Present: normal bowel sounds, soft, no peritoneal signs. Absent: distended, tenderness - Extremities Exam Extremities exam: Present: pedal edema - Neurological Exam Neurological exam: Present: CN II-XII intact, oriented X3, no focal deficits. Absent: pronater drift, facial droop, speech deficit - Skin Skin exam: Present: dry, intact Additional comments: Cap refill <2.5 sec Internal Medicine: Result - Labs CBC & Chem 7: 09/13/17 05:14 09/13/17 13:54 - ABG Interpretation ABG results: PT/INR, D-dimer PT 12.0 Seconds (9.4-12.1) 09/12/17 23:25 Consult Discharge Plan - Plan Referrals: Kar Toro MD [Primary Care Provider] -
[2017-09-14] MEDS: Budesonide/Formoterol 80/4.5 MDI IH SCH (23:03)
[2017-09-15 02:15] LABS: Basophils % 0.2 %; Hematocrit 37.5 % (35.3-44.9); Immature Granulocytes % 0.5 % (0-4); Lymphocytes # 1.5 K/mcL (0.6-4.6); Lymphocytes % 17.8 %; Mean Corpuscular HGB Conc 32.8 g/dL (31.6-35.5); Mean Corpuscular Hemoglobin 33.2 pg (28.0-33.3); Mean Corpuscular Volume 101.1 fL (83.0-100.0); Mean Platelet Volume 11.4 fL (9.4-12.4); Monocytes # 0.7 K/mcL (0.0-1.3); Neutrophils # 6.2 K/mcL (1.6-8.9); Platelet Count 179 K/mcL (140-400); Red Blood Count 3.71 M/mcL (3.82-4.97); Red Cell Distribution Width 12.9 % (11.5-14.5); Segmented Neutrophils % 73.5 %
[2017-09-15 02:23] LABS: BUN/Creatinine Ratio 18 (6-26); Blood Urea Nitrogen 13 mg/dL (6-20); Calcium 8.5 mg/dL (8.6-10.3); Carbon Dioxide 29 mEq/L (23-29); Chloride 104 mEq/L (98-107); Glucose 98 mg/dL (70-105); Osmolality,Calculated 290 (280-300); Potassium 3.1 mEq/L (3.5-5.1); Sodium 140 mEq/L (136-145); eGFR For African Americans > 60 (> 60); eGFR For Non-African Americans > 60 (> 60)
[2017-09-15 02:32] LABS: Hemoglobin 12.3 g/dL (11.5-15.4)
[2017-09-15 02:34] LABS: Platelet Estimate Normal (Normal)
[2017-09-15] MEDS: Ipratropium/Albuterol Neb 3 ML IH SCH ×2 (04:51→10:05)
[2017-09-15] MEDS: *HR* Enoxaparin 40 MG/0.4 ML SYRINGE SQ SCH (06:28)
[2017-09-15 07:27] VITALS: BP 105/62
--- NOTE | 2017-09-15 08:13 | Discharge Summary ---
- NOTES TO OUTPATIENT PROVIDER Notes to Outpatient Provider: Follow-up with primary care physician within the next 7 days. Complete 5 more days of Levaquin. Quit smoking. Continue oxygen therapy at home. Prednisone taper as follows:40 mg daily for 5 days, 30 mg daily for 5 days, 20 mg for 5 days and 10 mg for 5 days Orders not resulted at time of discharge: Pending orders 09/14/17 09:47 Culture,Blood [BC] Routine 09/16/17 04:00 BMP [Basic Metabolic Panel] AM 0400 CBC [Complete Blood Count] [HEME] AM 0400 09/17/17 04:00 BMP [Basic Metabolic Panel] AM 0400 CBC [Complete Blood Count] [HEME] AM 0400 Date of Encounter: 09/15/17 Time of Encounter: 08:09 - Discharge Diagnosis (1) Sepsis Priority: Primary Status: Acute Comments: Acute on chronic hypoxic respiratory failure secondary to acute COPD exacerbation due to sepsis from multifocal pneumonia/community-acquired pneumonia unknown agent Qualifiers: Sepsis type: sepsis due to unspecified organism Qualified Code(s): A41.9 - Sepsis, unspecified organism (2) Hypoxia Priority: Primary Status: Acute (3) COPD exacerbation Priority: Primary Status: Acute (4) Pulmonary nodule Priority: Secondary Status: Acute (5) Pneumonia Priority: Primary Status: Acute Qualifiers: Pneumonia type: due to unspecified organism Laterality: left Lung location: unspecified part of lung Qualified Code(s): J18.9 - Pneumonia, unspecified organism (6) Hypokalemia Priority: Secondary Status: Acute (7) Tobacco abuse Priority: Secondary Status: Acute Hospital course: Ms. Gomes is a 52 year old female with PMH of COPD oxygen dependent using 2 L at night, GERD, nephrolithiasis, anxiety , tobacco abuse who presented with complains of 3 days of rhinorrhea, followed by cough, now productive of yelowish sputum. She also reported fevers at home requiring use of OTC RTC. She reported SOB and pleuritic chest pain L>R. She did not feel relieved by using OTC allergy medications and decided to present to the ER. She was found to be hypoxic in the ER and febrile. CT scan of the chest showed multifocal pneumonia, . Scattered subsolid pulmonary nodules are most likely infectious or inflammatory. Follow-up CT scan could be obtained in 3-6 months. 2. Coronary artery disease. 3. Emphysema. Upon admission her temperature was 100.6 and heart rate of 100. Was a started on steroids and Levaquin. Patient's potassium is 3.1 which will be repleted. Stable to be discharged home Time spent discussing smoking cessation with patient: 3 to 10 minutes - Time Spent with Patient Total time spent providing and/or coordinating discharge services: Greater than 30 minutes (40 min) - Discharge Medications Prescriptions: Levofloxacin [Levaquin] 750 mg PO DAILY #5 tablet predniSONE [PredniSONE] 10 mg PO DAILY 20 Days tablet Home Medications: ALPRAZolam [Xanax 1 MG Tablet] 1 mg PO TID 12/29/15 [History] Albuterol Sulfate [Ventolin Hfa] 1 - 2 puff IH Q6H PRN 12/29/15 [History] Carisoprodol [Soma] 350 mg PO Q6H PRN 12/29/15 [History] Gabapentin [Neurontin] 800 mg PO BID 12/29/15 [History] cloNIDine HCl [CloNIDine HCl] 0.1 mg PO TID 12/29/15 [History] Ondansetron ODT [Zofran ODT] 4 mg SL Q6HR PRN #10 tab.rapdis 12/10/16 [Rx] Furosemide [Lasix] 10 mg PO DAILY 09/13/17 [History] Ibuprofen [Motrin] 200 - 400 mg PO Q4-6H PRN 09/13/17 [History] Promethazine [Phenergan] 25 mg PO TID PRN 09/13/17 [History] Dulera 100 Mcg/5 Mcg Inhaler 2 puff IH BID 09/14/17 [History] Levofloxacin [Levaquin] 750 mg PO DAILY #5 tablet 09/15/17 [Rx] predniSONE [PredniSONE] 10 mg PO DAILY 20 Days tablet 09/15/17 [Rx] Allergies/Adverse Reactions: 3 Allergy/AdvReac Type Severity Reaction Status Date / Time azithromycin Allergy Hives Verified 09/13/17 08:48 codeine AdvReac Nausea Verified 09/13/17 08:48 ketorolac [From Toradol] AdvReac Nausea Verified 09/13/17 08:48 ivp dye Allergy Hives Uncoded 12/29/15 10:08 Date of admission: 09/13/17 20:18 Primary care physician: Kar Toro MD - Constitutional Vitals: Temp Pulse Resp BP Pulse Ox 97.7 F 68 18 105/62 92 09/15/17 07:26 09/15/17 07:26 09/15/17 07:26 09/15/17 07:26 09/15/17 07:26 General appearance: Present: cooperative, mild distress (full sentence dyspnea) , A&O X 3, pleasant - Head Head exam: Present: atraumatic, normocephalic - Eye Eye exam: Present: PERRL, conjuntiva pink, sclera anicteric Pupils: Present: PERRL - Neck Neck exam general surgery: Present: supple, trachea midline. Absent: lymphadenopathy - Respiratory Respiratory exam: Present: decreased breath sounds, CTAB. Absent: accessory muscle use, rales, rhonchi, wheezes - Cardiovascular Cardiovascular exam: Present: RRR, +S1, +S2. Absent: diastolic murmur, gallop, rubs, systolic murmur - GI/Abdominal GI/Abdominal exam: Present: normal bowel sounds, soft, no peritoneal signs. Absent: distended, tenderness - Extremities Exam Extremities exam: Present: warm, radial pulses palpable and symmetrical. Absent : calf tenderness, cyanotic, pedal edema - Neurological Exam Neurological exam: Present: CN II-XII intact, oriented X3, no focal deficits. Absent: pronater drift, facial droop, speech deficit - Skin Skin exam: Present: dry, intact - Patient Status Disposition: Home, Self-Care Condition: Good Overall status at discharge: patient is progressing back to baseline - Discharge Instructions Follow Up With: Kar Toro MD [Primary Care Provider] - Additional Instructions: Follow-up with primary care physician within the next 7 days. Complete 5 more days of Levaquin. Quit smoking. Continue oxygen therapy at home. Prednisone taper as follows:40 mg daily for 5 days, 30 mg daily for 5 days, 20 mg for 5 days and 10 mg for 5 days - Diet and Activity Activity: wear oxygen at night Diet: low fat, low cholesterol
[2017-09-15] MEDS: Levofloxacin 750 MG/150 ML 750 MG/150 ML BAG IVPB SCH (08:28)
[2017-09-15] MEDS: ALPRAZolam 1 MG TABLET PO SCH (08:29)
[2017-09-15] MEDS: Gabapentin 400 MG CAPSULE PO SCH (08:29)
[2017-09-15] MEDS: cloNIDine HCl 0.1 MG TABLET PO SCH (08:29)
[2017-09-15] MEDS: predniSONE 20 MG TABLET PO SCH (08:29)
[2017-09-15] MEDS: Nicotine 21 MG PATCH.TD24 TD SCH (08:30)
[2017-09-15] MEDS: Carisoprodol 350 MG TABLET PO PRN (08:35)
[2017-09-15] MEDS ORDERED: levoFLOXacin 750 MG TABLET PO ONE (08:52)
[2017-09-15] MEDS: Budesonide/Formoterol 80/4.5 MDI IH SCH (10:05)
== END 2017-09-15 11:40 | disposition home or self-care (01) | DRG 720 ==
LOC: EMEROO 23:10 → 2NENU 23:10
PROVIDERS: ADMIT Internal Medicine Cardiovascular Disease; ATTEND Internal Medicine Cardiovascular Disease

== ENCOUNTER 2019-07-14 18:08 | Observation (INO) ==
[2019-07-14] MEDS ORDERED: Ipratropium/Albuterol Neb 3 ML IH ONE (18:28)
[2019-07-14] MEDS ORDERED: methylPREDNISolone 125 MG/2 ML VIAL IVP ONE (18:28)
[2019-07-14] MEDS ORDERED: 0.9 % Sodium Chloride 1,000 ML IVC ONE (18:28)
[2019-07-14] MEDS ORDERED: *HR* Promethazine 25 MG/ML VIAL IVP ONE (18:28)
[2019-07-14 20:40] LABS: Bilirubin,Urine Small (Negative); Blood,Urine Negative (Negative); Clarity,Urine Clear (Clear); Color,Urine Yellow (Yellow); Glucose,Urine (UA) Normal (Normal); Ketones,Urine Trace mg/dL (Negative); Leukocyte Esterase,Urine Negative (Negative); Nitrite,Urine Negative (Negative); Protein,Urine 30 mg/dL (Neg-Trace); Specific Gravity,Urine 1.027 (1.010-1.025); Urobilinogen,Urine Normal (Normal)
[2019-07-14 20:40] LABS: Basophils % 0.5 %; Eosinophils % 0.2 %; Hemoglobin 14.4 g/dL (11.5-15.4); Immature Granulocytes % 0.6 % (0-4); Lymphocytes # 1.5 K/mcL (0.6-4.6); Lymphocytes % 23.6 %; Mean Corpuscular HGB Conc 33.5 g/dL (31.6-35.5); Mean Corpuscular Hemoglobin 32.7 pg (28.0-33.3); Mean Corpuscular Volume 97.5 fL (83.0-100.0); Monocytes # 0.4 K/mcL (0.0-1.3); Monocytes % 6.8 %; Platelet Count 182 K/mcL (140-400); Red Blood Count 4.41 M/mcL (3.82-4.97); Red Cell Distribution Width 12.7 % (11.5-14.5); Segmented Neutrophils % 68.3 %; White Blood Count 6.2 K/mcL (4.3-11.1)
[2019-07-14 20:47] LABS: Neutrophils # 4.2 K/mcL (1.6-8.9)
[2019-07-14 20:50] LABS: Bacteria,Urine None Seen per hpf (None-Few); Hyaline Casts,Urine Moderate per lpf (None-Few); Squamous Epithelial Cell,Urine Many per lpf (None-Few)
[2019-07-14] MEDS ORDERED: Azithromycin 500 MG in 0.9 % Sodium Chloride 250 ML IVPB ONE (21:06)
[2019-07-14] MEDS ORDERED: Piperacillin/Tazobactam 3.375 GM in 0.9 % Sodium Chloride Mini Bag 100 ML IVPB ONE ×2 (21:06→22:48)
[2019-07-14] MEDS ORDERED: cefTRIAXone 1,000 MG in Water for inj. (sterile) 10 ML IVP ONE (21:06)
[2019-07-14 21:08] LABS: BUN/Creatinine Ratio 29 (6-26); Blood Urea Nitrogen 18 mg/dL (6-20); Calcium 8.1 mg/dL (8.6-10.3); Carbon Dioxide 24 mEq/L (23-29); Chloride 105 mEq/L (98-107); Glucose 119 mg/dL (70-105); Osmolality,Calculated 293 (280-300); Potassium 3.2 mEq/L (3.5-5.1); Sodium 140 mEq/L (136-145); eGFR For African Americans > 60 (> 60); eGFR For Non-African Americans > 60 (> 60)
[2019-07-14 21:19] LABS: Platelet Estimate Normal (Normal); Reactive Lymphocytes Present (Not Present)
[2019-07-14] MEDS ORDERED: Naloxone 0.4 MG/ML INJ IVP PRN (22:38)
[2019-07-14] MEDS ORDERED: Potassium Chloride 40 MEQ, Lidocaine 1% 2 ML in 0.9 % Sodium Chloride 500 ML IVPB ONE (23:01)
[2019-07-14] MEDS: 0.9 % Sodium Chloride 1,000 ML IVC SCH (23:59)
[2019-07-14] MEDS: Ondansetron 4 MG/2 ML VIAL IVP PRN (23:59)
[2019-07-15] MEDS: *HR* Promethazine 25 MG/ML VIAL IVP PRN ×3 (01:33→21:30)
[2019-07-15 01:42] LABS: Hemoglobin 13.8 g/dL (11.5-15.4); Immature Granulocytes % 0.5 % (0-4); Red Cell Distribution Width 12.8 % (11.5-14.5)
[2019-07-15 01:44] LABS: Basophils % 0.5 %; Hematocrit 41.5 % (35.3-44.9); Lymphocytes # 0.5 K/mcL (0.6-4.6); Lymphocytes % 23.1 %; Mean Corpuscular HGB Conc 33.3 g/dL (31.6-35.5); Mean Corpuscular Hemoglobin 32.9 pg (28.0-33.3); Mean Corpuscular Volume 98.8 fL (83.0-100.0); Mean Platelet Volume 9.9 fL (9.4-12.4); Monocytes # 0.1 K/mcL (0.0-1.3); Monocytes % 5.1 %; Neutrophils # 1.4 K/mcL (1.6-8.9); Platelet Count 167 K/mcL (140-400); Segmented Neutrophils % 70.8 %
[2019-07-15 02:05] LABS: Alanine Aminotransferase 24 Units/L (7-52); Albumin 3.8 g/dL (3.5-5.7); Albumin/Globulin Ratio 1.2 (1.1-2.2); Alkaline Phosphatase 73 Units/L (34-104); Aspartate Amino Transferase 25 Units/L (13-39); BUN/Creatinine Ratio 30 (6-26); Bilirubin,Total 0.2 mg/dL (0.3-1.0); Blood Urea Nitrogen 16 mg/dL (6-20); Calcium 8.1 mg/dL (8.6-10.3); Carbon Dioxide 25 mEq/L (23-29); Chloride 104 mEq/L (98-107); Chol/HDL Ratio 5.1 (0-4.9); Cholesterol 168 mg/dL (< 200); Globulin 3.3 g/dL (2.4-3.5); Glucose 158 mg/dL (70-105); HDL Cholesterol 33 mg/dL (40-59); LDL Cholesterol,Calculated 115 mg/dL (0-99); Magnesium 1.7 mg/dL (1.6-2.6); Osmolality,Calculated 292 (280-300); Phosphorous 2.9 mg/dL (2.7-4.5); Potassium 3.3 mEq/L (3.5-5.1); Sodium 139 mEq/L (136-145); Total Protein 7.1 g/dL (6.4-8.9); Triglycerides 100 mg/dL (< 150); eGFR For African Americans > 60 (> 60); eGFR For Non-African Americans > 60 (> 60)
[2019-07-15 02:58] LABS: Platelet Estimate Normal (Normal); Reactive Lymphocytes Present (Not Present)
[2019-07-15] MEDS: MethylPREDNISolone 40 MG/ML VIAL IVP SCH ×2 (03:40→10:45)
[2019-07-15] MEDS: *HR* Heparin 5,000 UNIT/ML VIAL SQ SCH ×3 (05:41→21:30)
[2019-07-15] MEDS: Acetaminophen 325 MG TABLET PO PRN (05:47)
[2019-07-15] MEDS: levoFLOXacin 500 MG/100 ML 500 MG/100 ML BAG IVPB SCH (08:31)
[2019-07-15] MEDS: Ondansetron 4 MG/2 ML VIAL IVP PRN (08:31)
[2019-07-15] MEDS ORDERED: Azithromycin 500 MG in 0.9 % Sodium Chloride 250 ML IVPB SCH (09:00)
[2019-07-15] MEDS: Ipratropium/Albuterol Neb 3 ML IH SCH ×3 (11:24→21:52)
[2019-07-15] MEDS ORDERED: Gabapentin 400 MG CAPSULE PO STA (11:31)
[2019-07-15] MEDS ORDERED: cloNIDine HCl 0.1 MG TABLET PO ONE (11:32)
[2019-07-15] MEDS: ALPRAZolam 1 MG TABLET PO PRN ×2 (11:36→21:46)
[2019-07-15] MEDS: 0.9 % Sodium Chloride 1,000 ML IVC SCH ×2 (16:01→19:20)
[2019-07-15] MEDS ORDERED: Carisoprodol 350 MG TABLET PO PRN (17:18)
[2019-07-15] MEDS ORDERED: MethylPREDNISolone 40 MG/ML VIAL IVP SCH ×2 (18:00)
[2019-07-15] MEDS: cloNIDine HCl 0.1 MG TABLET PO SCH (21:30)
[2019-07-15] MEDS: Gabapentin 400 MG CAPSULE PO SCH (21:30)
[2019-07-15] MEDS: Budesonide/Formoterol 80/4.5 1 PUFF INH IH SCH (21:52)
[2019-07-15 23:54] LABS: Adenovirus Not Detected (Not Detect); Bordetella Pertussis Not Detected (Not Detect); Chlamydophila pneumoniae Not Detected (Not Detect); Coronavirus 229E Not Detected (Not Detect); Coronavirus HKU1 Not Detected (Not Detect); Coronavirus NL63 Not Detected (Not Detect); Coronavirus OC43 Not Detected (Not Detect); Human Metapneumovirus Not Detected (Not Detect); Human Rhinovirus/Enterovirus Not Detected (Not Detect); Influenza A Subtype 2009 H1 Not Detected (Not Detect); Influenza B Not Detected (Not Detect); Mycoplasma pneumoniae Not Detected (Not Detect); Parainfluenza Virus 1 Not Detected (Not Detect); Parainfluenza Virus 2 Not Detected (Not Detect); Parainfluenza Virus 3 Not Detected (Not Detect); Parainfluenza Virus 4 Not Detected (Not Detect); Respiratory Syncytial Virus Not Detected (Not Detect)
[2019-07-15 23:55] LABS: Influenza A Equivocal (Not Detect)
[2019-07-16] MEDS: Ipratropium/Albuterol Neb 3 ML IH SCH ×4 (03:30→21:22)
[2019-07-16 05:07] LABS: Basophils % 0.6 %; Eosinophils % 0.2 %; Hematocrit 38.9 % (35.3-44.9); Hemoglobin 12.5 g/dL (11.5-15.4); Immature Granulocytes % 0.2 % (0-4); Lymphocytes # 2.1 K/mcL (0.6-4.6); Mean Corpuscular HGB Conc 32.1 g/dL (31.6-35.5); Mean Corpuscular Hemoglobin 31.8 pg (28.0-33.3); Mean Platelet Volume 10.3 fL (9.4-12.4); Monocytes # 0.5 K/mcL (0.0-1.3); Monocytes % 10.8 %; Platelet Count 157 K/mcL (140-400); Red Blood Count 3.93 M/mcL (3.82-4.97); Red Cell Distribution Width 12.6 % (11.5-14.5); Segmented Neutrophils % 43.2 %
[2019-07-16 05:13] LABS: Platelet Estimate Normal (Normal); Reactive Lymphocytes Present (Not Present); White Blood Count 4.6 K/mcL (4.3-11.1)
[2019-07-16 05:59] LABS: BUN/Creatinine Ratio 21 (6-26); Blood Urea Nitrogen 10 mg/dL (6-20); Calcium 7.8 mg/dL (8.6-10.3); Chloride 110 mEq/L (98-107); Glucose 84 mg/dL (70-105); Osmolality,Calculated 288 (280-300); Potassium 3.5 mEq/L (3.5-5.1); Sodium 140 mEq/L (136-145); eGFR For African Americans > 60 (> 60); eGFR For Non-African Americans > 60 (> 60)
[2019-07-16] MEDS: *HR* Heparin 5,000 UNIT/ML VIAL SQ SCH ×3 (06:13→21:17)
[2019-07-16 06:15] LABS: Carbon Dioxide 19 mEq/L (23-29)
[2019-07-16] MEDS: levoFLOXacin 500 MG/100 ML 500 MG/100 ML BAG IVPB SCH (08:56)
[2019-07-16] MEDS: Gabapentin 400 MG CAPSULE PO SCH ×2 (08:56→21:17)
[2019-07-16] MEDS: cloNIDine HCl 0.1 MG TABLET PO SCH (08:56)
[2019-07-16] MEDS ORDERED: MethylPREDNISolone 40 MG/ML VIAL IVP SCH (09:00)
[2019-07-16] MEDS: *HR* Promethazine 25 MG/ML VIAL IVP PRN ×2 (10:02→21:23)
[2019-07-16] MEDS: ALPRAZolam 1 MG TABLET PO PRN ×2 (10:02→16:17)
[2019-07-16] MEDS: 0.9 % Sodium Chloride 1,000 ML IVC SCH (10:45)
[2019-07-16] MEDS: Budesonide/Formoterol 80/4.5 1 PUFF INH IH SCH ×2 (10:47→21:22)
[2019-07-16] MEDS: Acetaminophen 325 MG TABLET PO PRN (23:35)
[2019-07-17] MEDS: ALPRAZolam 1 MG TABLET PO PRN (00:37)
[2019-07-17] MEDS: Ipratropium/Albuterol Neb 3 ML IH SCH ×2 (03:54→10:00)
[2019-07-17] MEDS: *HR* Heparin 5,000 UNIT/ML VIAL SQ SCH (05:18)
[2019-07-17 06:00] LABS: Basophils % 0.5 %; Eosinophils % 0.3 %; Hematocrit 40.9 % (35.3-44.9); Hemoglobin 13.1 g/dL (11.5-15.4); Immature Granulocytes % 0.5 % (0-4); Lymphocytes # 2.6 K/mcL (0.6-4.6); Lymphocytes % 42.8 %; Mean Corpuscular Volume 99.8 fL (83.0-100.0); Mean Platelet Volume 10.3 fL (9.4-12.4); Monocytes # 0.6 K/mcL (0.0-1.3); Monocytes % 9.8 %; Neutrophils # 2.8 K/mcL (1.6-8.9); Platelet Count 228 K/mcL (140-400); Red Cell Distribution Width 12.7 % (11.5-14.5); Segmented Neutrophils % 46.1 %
[2019-07-17 06:12] LABS: BUN/Creatinine Ratio 22 (6-26); Blood Urea Nitrogen 13 mg/dL (6-20); Calcium 8.2 mg/dL (8.6-10.3); Carbon Dioxide 25 mEq/L (23-29); Chloride 106 mEq/L (98-107); Glucose 89 mg/dL (70-105); Osmolality,Calculated 290 (280-300); Sodium 140 mEq/L (136-145); eGFR For African Americans > 60 (> 60); eGFR For Non-African Americans > 60 (> 60)
[2019-07-17 07:07] VITALS: BP 114/63
[2019-07-17] MEDS: Gabapentin 400 MG CAPSULE PO SCH (08:17)
[2019-07-17] MEDS: levoFLOXacin 500 MG/100 ML 500 MG/100 ML BAG IVPB SCH (08:17)
[2019-07-17] MEDS: *HR* Promethazine 25 MG/ML VIAL IVP PRN (08:19)
[2019-07-17] MEDS ORDERED: predniSONE 20 MG TABLET PO SCH (09:00)
[2019-07-17] MEDS ORDERED: Cyanocobalamin (B-12) 1,000 MCG TABLET PO SCH (09:00)
[2019-07-17] MEDS: Budesonide/Formoterol 80/4.5 1 PUFF INH IH SCH (10:00)
== END 2019-07-17 11:01 | disposition home or self-care (01) ==
LOC: EMEROOARM 18:08 → 3ANU 18:08 → SUATTDRO 22:01 → 3ANU 22:50
PROVIDERS: ADMIT Family Medicine; ATTEND Internal Medicine

== ENCOUNTER 2020-05-18 20:11 | Observation (INO) ==
[2020-05-18] MEDS ORDERED: levoFLOXacin 750 MG TABLET PO ONE (20:25)
[2020-05-18] MEDS ORDERED: methylPREDNISolone 125 MG/2 ML VIAL IVP ONE (20:25)
[2020-05-18] MEDS ORDERED: Ipratropium/Albuterol Neb 3 ML IH ONE (20:26)
[2020-05-18 20:57] LABS: Bilirubin,Urine Negative (Negative); Blood,Urine Negative (Negative); Clarity,Urine Clear (Clear); Color,Urine Yellow (Yellow); Glucose,Urine (UA) Normal (Normal); Ketones,Urine 40 mg/dL (Negative); Leukocyte Esterase,Urine Negative (Negative); Mucus,Urine Few per lpf (None-Few); Nitrite,Urine Negative (Negative); PH,Urine 6.5 pH Units (5.0-8.0); Protein,Urine 50 mg/dL (Neg-Trace); Specific Gravity,Urine 1.025 (1.010-1.025); Squamous Epithelial Cell,Urine Few per hpf (None-Few); Urobilinogen,Urine Normal (Normal); WBC,Urine 0-3 per hpf (0-3)
[2020-05-18 21:29] LABS: Basophils # 0.1 K/mcL (0.0-0.2); Basophils % 0.4 %; Eosinophils % 0.1 %; Hematocrit 43.9 % (35.3-44.9); Hemoglobin 14.6 g/dL (11.5-15.4); Immature Granulocytes % 0.4 % (0-4); Lymphocytes # 1.7 K/mcL (0.6-4.6); Lymphocytes % 12.9 %; Mean Corpuscular HGB Conc 33.3 g/dL (31.6-35.5); Mean Corpuscular Hemoglobin 32.1 pg (28.0-33.3); Mean Corpuscular Volume 96.5 fL (83.0-100.0); Mean Platelet Volume 9.8 fL (9.4-12.4); Monocytes # 0.7 K/mcL (0.0-1.3); Monocytes % 4.8 %; Platelet Count 273 K/mcL (140-400); Red Blood Count 4.55 M/mcL (3.82-4.97); Red Cell Distribution Width 12.2 % (11.5-14.5); Segmented Neutrophils % 81.4 %; White Blood Count 13.5 K/mcL (4.3-11.1)
[2020-05-18 21:30] LABS: VBG HCO3 27 mEq/L (21-27); VBG PCO2 44 mmHg (41-51); VBG PH 7.41 pH Units (7.32-7.42); VBG PO2 53 mmHg (25-50)
[2020-05-18 21:51] LABS: BUN/Creatinine Ratio 26 (6-26); Blood Urea Nitrogen 15 mg/dL (6-20); Calcium 9.1 mg/dL (8.6-10.3); Carbon Dioxide 24 mEq/L (23-29); Chloride 106 mEq/L (98-107); Glucose 119 mg/dL (70-105); Osmolality,Calculated 294 (280-300); Potassium 3.6 mEq/L (3.5-5.1); Sodium 141 mEq/L (136-145); Troponin I < 0.03 ng/mL (< 0.04); eGFR For African Americans > 60 (> 60); eGFR For Non-African Americans > 60 (> 60)
[2020-05-18] MEDS ORDERED: Albuterol 2.5 MG/3 ML NEBULIZER IH ONE (22:27)
[2020-05-18 22:59] LABS: Amphetamine Screen,Urine Negative ng/mL (Cutoff=1000); Barbiturate Screen,Urine Negative ng/mL (Cutoff=200); Benzodiazepines Screen,Urine Negative ng/mL (Cutoff=200); Cannabinoid Screen,Urine Positive ng/mL (Cutoff = 50); Cocaine Screen,Urine Negative ng/mL (Cutoff= 300); Opiate Screen,Urine Negative ng/mL (Cutoff=300); Phencyclidine Screen,Urine Negative ng/mL (Cutoff=25)
[2020-05-18 23:14] LABS: Acetaminophen < 10 mcg/mL (10-20); Salicylate < 2.5 mg/dL (15.0-30.0)
[2020-05-18] MEDS ORDERED: Potassium Chloride Elixir 20 MEQ/15 ML UDC PO PRN ×2 (23:53)
[2020-05-18] MEDS ORDERED: Furosemide 20 MG TABLET PO PRN (23:53)
[2020-05-18] MEDS ORDERED: Ipratropium/Albuterol Neb 3 ML IH PRN (23:53)
[2020-05-19 02:27] LABS: Basophils % 0.2 %; Hematocrit 45.9 % (35.3-44.9); Hemoglobin 14.9 g/dL (11.5-15.4); Immature Granulocytes % 0.7 % (0-4); Lymphocytes # 0.4 K/mcL (0.6-4.6); Lymphocytes % 3.2 %; Mean Corpuscular HGB Conc 32.5 g/dL (31.6-35.5); Mean Corpuscular Hemoglobin 32.1 pg (28.0-33.3); Mean Corpuscular Volume 98.9 fL (83.0-100.0); Mean Platelet Volume 9.6 fL (9.4-12.4); Monocytes # 0.1 K/mcL (0.0-1.3); Monocytes % 0.7 %; Neutrophils # 11.6 K/mcL (1.6-8.9); Platelet Count 240 K/mcL (140-400); Red Blood Count 4.64 M/mcL (3.82-4.97); Red Cell Distribution Width 12.3 % (11.5-14.5); Segmented Neutrophils % 95.2 %; White Blood Count 12.1 K/mcL (4.3-11.1)
[2020-05-19 02:47] LABS: Alanine Aminotransferase 18 Units/L (7-52); Albumin 4.4 g/dL (3.5-5.7); Albumin/Globulin Ratio 1.3 (1.1-2.2); Alkaline Phosphatase 79 Units/L (34-104); Aspartate Amino Transferase 18 Units/L (13-39); BUN/Creatinine Ratio 25 (6-26); Bilirubin,Total 0.3 mg/dL (0.3-1.0); Blood Urea Nitrogen 16 mg/dL (6-20); Calcium 9.2 mg/dL (8.6-10.3); Carbon Dioxide 23 mEq/L (23-29); Chloride 106 mEq/L (98-107); Globulin 3.4 g/dL (2.4-3.5); Glucose 140 mg/dL (70-105); Osmolality,Calculated 297 (280-300); Potassium 3.1 mEq/L (3.5-5.1); Sodium 142 mEq/L (136-145); Total Protein 7.8 g/dL (6.4-8.9); eGFR For African Americans > 60 (> 60); eGFR For Non-African Americans > 60 (> 60)
[2020-05-19] MEDS: MethylPREDNISolone 40 MG/ML VIAL IVP SCH ×2 (05:20→10:26)
[2020-05-19] MEDS: cloNIDine HCL 0.1 MG TABLET PO SCH ×2 (10:25→21:42)
[2020-05-19] MEDS: ALPRAZolam 1 MG TABLET PO SCH ×3 (10:25→21:42)
[2020-05-19] MEDS: Gabapentin 400 MG CAPSULE PO SCH ×2 (10:25→21:42)
[2020-05-19] MEDS: Cyanocobalamin (B-12) 1,000 MCG TABLET PO SCH (10:25)
[2020-05-19] MEDS: Nystatin SUSP 5 ML UD.LIQ PO SCH ×4 (10:26→21:42)
[2020-05-19] MEDS: lisinopriL 5 MG TABLET PO SCH (10:26)
[2020-05-19] MEDS: Budesonide/Formoterol 80/4.5 1 PUFF INH IH SCH ×2 (11:16→19:54)
[2020-05-19] MEDS: Tiotropium 10 INH DOSE IH SCH (11:18)
[2020-05-19] MEDS ORDERED: Magnesium Sulfate 1 GM/102 ML PIGGYBACK IVPB ONE (12:31)
[2020-05-19] MEDS: *HR* Heparin 5,000 UNIT/ML VIAL SQ SCH (16:31)
[2020-05-19] MEDS: Carisoprodol 350 MG TABLET PO PRN ×2 (16:56→23:19)
[2020-05-19] MEDS ORDERED: levoFLOXacin 500 MG/100 ML 500 MG/100 ML BAG IVPB SCH (21:00)
[2020-05-19] MEDS: Doxycycline 100 MG CAPSULE PO SCH (21:42)
[2020-05-19 21:49] LABS: Acinetobacter baumannii by PCR Not Detected (Not Detect); Candida albicans by PCR Not Detected (Not Detect); Candida glabrata by PCR Not Detected (Not Detect); Candida krusei by PCR Not Detected (Not Detect); Candida parapsilosis by PCR Not Detected (Not Detect); Candida tropicalis by PCR Not Detected (Not Detect); Enterobacter cloacae Cmplx PCR Not Detected (Not Detect); Enterobacteriaceae by PCR Not Detected (Not Detect); Enterococcus by PCR Not Detected (Not Detect); Escherichia coli by PCR Not Detected (Not Detect); Klebsiella oxytoca by PCR Not Detected (Not Detect); Klebsiella pneumoniae by PCR Not Detected (Not Detect); Proteus by PCR Not Detected (Not Detect); Pseudomonas aeruginosa by PCR Not Detected (Not Detect); Serratia marcescens by PCR Not Detected (Not Detect); Staphylococcus aureus by PCR Not Detected (Not Detect); Staphylococcus by PCR DETECTED (Not Detect); Streptococcus agalactiae(B)PCR Not Detected (Not Detect); Streptococcus by PCR Not Detected (Not Detect); Streptococcus pneumoniae PCR Not Detected (Not Detect); Streptococcus pyogenes (A) PCR Not Detected (Not Detect); blaKPC Carbapenem-Resist Gene Not Detected (Not Detect); mecA Methicillin-Resist Gene DETECTED (Not Detect); vanA/B Vancomycin-Resist Genes Not Detected (Not Detect)
[2020-05-20] MEDS: *HR* Heparin 5,000 UNIT/ML VIAL SQ SCH (05:28)
[2020-05-20 07:07] LABS: Basophils # 0.1 K/mcL (0.0-0.2); Basophils % 0.4 %; Eosinophils # 0.1 K/mcL (0.0-0.6); Eosinophils % 0.4 %; Hematocrit 41.9 % (35.3-44.9); Hemoglobin 13.7 g/dL (11.5-15.4); Immature Granulocytes % 0.6 % (0-4); Lymphocytes # 3.6 K/mcL (0.6-4.6); Lymphocytes % 29.2 %; Mean Corpuscular HGB Conc 32.7 g/dL (31.6-35.5); Mean Corpuscular Hemoglobin 32.6 pg (28.0-33.3); Mean Corpuscular Volume 99.8 fL (83.0-100.0); Mean Platelet Volume 9.6 fL (9.4-12.4); Neutrophils # 7.5 K/mcL (1.6-8.9); Platelet Count 243 K/mcL (140-400); Red Cell Distribution Width 12.8 % (11.5-14.5); Segmented Neutrophils % 61.4 %; White Blood Count 12.2 K/mcL (4.3-11.1)
[2020-05-20 07:29] LABS: BUN/Creatinine Ratio 30 (6-26); Blood Urea Nitrogen 20 mg/dL (6-20); Calcium 8.8 mg/dL (8.6-10.3); Carbon Dioxide 24 mEq/L (23-29); Chloride 107 mEq/L (98-107); Glucose 94 mg/dL (70-105); Magnesium 2.1 mg/dL (1.6-2.6); Osmolality,Calculated 290 (280-300); Phosphorous 2.8 mg/dL (2.7-4.5); Potassium 3.6 mEq/L (3.5-5.1); Sodium 139 mEq/L (136-145); eGFR For African Americans > 60 (> 60); eGFR For Non-African Americans > 60 (> 60)
[2020-05-20] MEDS: Budesonide/Formoterol 80/4.5 1 PUFF INH IH SCH (07:29)
[2020-05-20] MEDS: Tiotropium 10 INH DOSE IH SCH (07:30)
[2020-05-20 08:07] VITALS: BP 124/68
[2020-05-20] MEDS ORDERED: predniSONE 20 MG TABLET PO SCH (09:00)
[2020-05-20] MEDS: Doxycycline 100 MG CAPSULE PO SCH (09:31)
[2020-05-20] MEDS: Gabapentin 400 MG CAPSULE PO SCH (09:31)
[2020-05-20] MEDS: lisinopriL 5 MG TABLET PO SCH (09:31)
[2020-05-20] MEDS: Nystatin SUSP 5 ML UD.LIQ PO SCH (09:31)
[2020-05-20] MEDS: cloNIDine HCL 0.1 MG TABLET PO SCH (09:31)
[2020-05-20] MEDS: Cyanocobalamin (B-12) 1,000 MCG TABLET PO SCH (09:31)
[2020-05-20] MEDS: ALPRAZolam 1 MG TABLET PO SCH (09:31)
[2020-05-20] MEDS: Carisoprodol 350 MG TABLET PO PRN (09:37)
== END 2020-05-20 11:10 | disposition home or self-care (01) ==
LOC: 2ANU 20:11 → EMEROOARM 20:11 → SUATTDRO 22:55 → 2ANU 23:24
PROVIDERS: ADMIT Internal Medicine Nephrology; ATTEND Internal Medicine

== ENCOUNTER 2020-10-19 19:42 | Observation (INO) ==
[2020-10-19] MEDS ORDERED: *HR* HYDROmorphone 2 MG/ML SYRINGE IVP ONE (20:12)
[2020-10-19] MEDS ORDERED: Ondansetron 4 MG/2 ML VIAL IVP ONE (20:15)
[2020-10-19] MEDS ORDERED: *HR* Propofol 200 MG/20 ML VIAL IVP ONE (22:30)
[2020-10-19] MEDS ORDERED: 0.9 % Sodium Chloride 1,000 ML ONE (22:56)
[2020-10-20] MEDS ORDERED: Ondansetron 4 MG/2 ML VIAL IVP PRN ×4 (01:20→18:29)
[2020-10-20] MEDS ORDERED: *HR* HYDROcodone/Acet 5/325 mg TABLET PO PRN (01:20)
[2020-10-20] MEDS ORDERED: *HR* OxyCODONE Immed Rel 5 MG TABLET PO PRN ×4 (01:20→18:29)
[2020-10-20] MEDS ORDERED: Naloxone 0.4 MG/ML INJ IVP PRN ×2 (01:20→18:29)
[2020-10-20] MEDS ORDERED: Melatonin 3 MG TABLET PO PRN ×2 (01:20→18:29)
[2020-10-20] MEDS ORDERED: *HR* Promethazine 25 MG/ML VIAL IM PRN (01:20)
[2020-10-20] MEDS ORDERED: Acetaminophen 325 MG TABLET PO PRN ×2 (01:20→18:29)
[2020-10-20 02:19] LABS: Basophils # 0.1 K/mcL (0.0-0.2); Basophils % 0.7 %; Eosinophils # 0.2 K/mcL (0.0-0.6); Eosinophils % 1.6 %; Hematocrit 43.1 % (35.3-44.9); Immature Granulocytes % 0.4 % (0-4); Lymphocytes # 2.5 K/mcL (0.6-4.6); Lymphocytes % 24.2 %; Mean Corpuscular HGB Conc 32.5 g/dL (31.6-35.5); Mean Corpuscular Volume 101.7 fL (83.0-100.0); Mean Platelet Volume 9.4 fL (9.4-12.4); Monocytes # 0.9 K/mcL (0.0-1.3); Monocytes % 8.6 %; Neutrophils # 6.6 K/mcL (1.6-8.9); Platelet Count 215 K/mcL (140-400); Red Blood Count 4.24 M/mcL (3.82-4.97); Red Cell Distribution Width 12.3 % (11.5-14.5); Segmented Neutrophils % 64.5 %; White Blood Count 10.3 K/mcL (4.3-11.1)
[2020-10-20 02:38] LABS: BUN/Creatinine Ratio 21 (6-26); Blood Urea Nitrogen 15 mg/dL (6-20); Calcium 8.2 mg/dL (8.6-10.3); Carbon Dioxide 24 mEq/L (23-29); Chloride 110 mEq/L (98-107); Glucose 98 mg/dL (70-105); Osmolality,Calculated 287 (280-300); Potassium 4.3 mEq/L (3.5-5.1); Sodium 138 mEq/L (136-145); eGFR For African Americans > 60 (> 60); eGFR For Non-African Americans > 60 (> 60)
[2020-10-20] MEDS ORDERED: Morphine Sulfate 2 MG/ML SYRINGE IVP ONE ×2 (04:01→09:08)
[2020-10-20] MEDS ORDERED: Ipratropium/Albuterol Neb 3 ML IH PRN ×2 (04:02→18:29)
[2020-10-20] MEDS ORDERED: Ringers Solution, Lactated 500 ML IVC ONE (05:36)
[2020-10-20] MEDS ORDERED: Ringers Solution, Lactated 500 ML IV ONE (06:15)
[2020-10-20] MEDS ORDERED: Tiotropium 10 INH DOSE IH ONE (07:57)
[2020-10-20] MEDS ORDERED: Tiotropium 10 INH DOSE IH SCH (10:00)
[2020-10-20] MEDS ORDERED: Budesonide/Formoterol 160/4.5 1 PUFF INH IH SCH (10:00)
[2020-10-20] MEDS ORDERED: Furosemide 20 MG TABLET PO PRN ×2 (11:31→18:29)
[2020-10-20 14:38] LABS: Adenovirus Not Detected (Not Detect); Bordetella Pertussis Not Detected (Not Detect); Chlamydophila pneumoniae Not Detected (Not Detect); Coronavirus 229E Not Detected (Not Detect); Coronavirus HKU1 Not Detected (Not Detect); Coronavirus NL63 Not Detected (Not Detect); Coronavirus OC43 Not Detected (Not Detect); Human Metapneumovirus Not Detected (Not Detect); Human Rhinovirus/Enterovirus Not Detected (Not Detect); Influenza A Subtype 2009 H1 Not Detected (Not Detect); Influenza B Not Detected (Not Detect); Mycoplasma pneumoniae Not Detected (Not Detect); Parainfluenza Virus 1 Not Detected (Not Detect); Parainfluenza Virus 2 Not Detected (Not Detect); Parainfluenza Virus 3 Not Detected (Not Detect); Parainfluenza Virus 4 Not Detected (Not Detect); Respiratory Syncytial Virus Not Detected (Not Detect); SARS-CoV-2 Not Detected (Not Detect)
[2020-10-20] MEDS ORDERED: cloNIDine HCL 0.1 MG TABLET PO SCH (15:00)
[2020-10-20] MEDS ORDERED: ALPRAZolam 1 MG TABLET PO SCH (15:00)
[2020-10-20] MEDS ORDERED: *HR* FentaNYL (PF) 100 MCG/2 ML VIAL ONE ×3 (15:18→16:21)
[2020-10-20] MEDS ORDERED: *HR* Midazolam HCl 2 MG/2 ML VIAL ONE ×2 (15:18→15:32)
[2020-10-20] MEDS ORDERED: Ropivacaine/PF 0.5% 30 ML VIAL ONE (15:28)
[2020-10-20] MEDS ORDERED: ROPIVACAINE/PF/NS 0.25% 1 EACH SYRINGE INTRAART ONE (15:28)
[2020-10-20] MEDS ORDERED: *HR* Propofol 200 MG/20 ML VIAL IVP ONE (15:32)
[2020-10-20] MEDS ORDERED: Lidocaine -MPF 2% 2 ML VIAL ONE (15:32)
[2020-10-20] MEDS ORDERED: Ondansetron 4 MG/2 ML VIAL ONE ×2 (15:32→17:38)
[2020-10-20] MEDS ORDERED: Promethazine 6.25 MG in Water for inj. (sterile) 20 ML IVPB ONE (17:54)
[2020-10-20] MEDS ORDERED: Gabapentin 400 MG CAPSULE PO SCH (21:00)
[2020-10-20] MEDS: ceFAZolin 2,000 MG in 0.9 % Sodium Chloride 100 ML IVPB SCH (22:02)
[2020-10-20] MEDS: cloNIDine HCL 0.1 MG TABLET PO SCH (22:03)
[2020-10-20] MEDS: ALPRAZolam 1 MG TABLET PO SCH (22:03)
[2020-10-20] MEDS: Gabapentin 400 MG CAPSULE PO SCH (22:03)
[2020-10-21] MEDS: *HR* OxyCODONE Immed Rel 5 MG TABLET PO PRN ×2 (00:22→09:17)
[2020-10-21] MEDS: *HR* HYDROcodone/Acet 5/325 mg TABLET PO PRN ×2 (06:09→14:01)
[2020-10-21] MEDS: ceFAZolin 2,000 MG in 0.9 % Sodium Chloride 100 ML IVPB SCH (06:10)
[2020-10-21 07:02] LABS: Basophils % 0.1 %; Eosinophils % 0.1 %; Hematocrit 37.7 % (35.3-44.9); Hemoglobin 12.1 g/dL (11.5-15.4); Immature Granulocytes % 0.4 % (0-4); Lymphocytes # 1.3 K/mcL (0.6-4.6); Lymphocytes % 13.9 %; Mean Corpuscular HGB Conc 32.1 g/dL (31.6-35.5); Mean Corpuscular Hemoglobin 32.1 pg (28.0-33.3); Mean Platelet Volume 10.3 fL (9.4-12.4); Monocytes # 0.8 K/mcL (0.0-1.3); Monocytes % 8.2 %; Neutrophils # 7.5 K/mcL (1.6-8.9); Platelet Count 225 K/mcL (140-400); Red Blood Count 3.77 M/mcL (3.82-4.97); Red Cell Distribution Width 11.9 % (11.5-14.5); Segmented Neutrophils % 77.3 %; White Blood Count 9.7 K/mcL (4.3-11.1)
[2020-10-21] MEDS: ALPRAZolam 1 MG TABLET PO SCH ×2 (08:17→13:59)
[2020-10-21] MEDS: cloNIDine HCL 0.1 MG TABLET PO SCH ×2 (08:17→14:00)
[2020-10-21] MEDS: Gabapentin 400 MG CAPSULE PO SCH (08:18)
[2020-10-21] MEDS ORDERED: Budesonide/Formoterol 160/4.5 1 PUFF INH IH SCH (10:00)
[2020-10-21] MEDS ORDERED: Tiotropium 10 INH DOSE IH SCH (10:00)
[2020-10-21 16:49] VITALS: BP 99/61
== END 2020-10-21 17:49 | disposition home health service (06) ==
LOC: 3NENU 19:42 → EMEROOARM 19:42 → 3NENU 10-20 01:30
PROVIDERS: ADMIT Internal Medicine; ATTEND Internal Medicine

== ENCOUNTER 2021-08-11 15:05 | Inpatient (IN) ==
[2021-08-11] MEDS ORDERED: Naloxone 0.4 MG/ML INJ IVP ONE (15:22)
[2021-08-11] MEDS ORDERED: 0.9 % Sodium Chloride 1,000 ML IVC ONE (15:22)
[2021-08-11 15:42] LABS: Bacteria,Urine Few per hpf (None-Few); Bilirubin,Urine Negative (Negative); Blood,Urine Trace (Negative); Clarity,Urine Clear (Clear); Color,Urine Light-Yellow (Yellow); Glucose,Urine (UA) 300 mg/dL (Normal); Hyaline Casts,Urine Few per lpf (None Seen); Ketones,Urine Negative (Negative); Leukocyte Esterase,Urine Negative (Negative); Mucus,Urine Few per lpf (None-Few); Nitrite,Urine Negative (Negative); Protein,Urine 30 mg/dL (Neg-Trace); RBC,Urine 0-3 per hpf (0-3); Specific Gravity,Urine 1.016 (1.010-1.025); Urobilinogen,Urine Normal (Normal); WBC,Urine 0-3 per hpf (0-3)
[2021-08-11 16:02] LABS: Amphetamine Screen,Urine Negative ng/mL (Cutoff=1000); Barbiturate Screen,Urine Negative ng/mL (Cutoff=200); Benzodiazepines Screen,Urine Positive ng/mL (Cutoff=200); Cannabinoid Screen,Urine Positive ng/mL (Cutoff = 50); Cocaine Screen,Urine Negative ng/mL (Cutoff= 300); Opiate Screen,Urine Negative ng/mL (Cutoff=300); Phencyclidine Screen,Urine Negative ng/mL (Cutoff=25)
[2021-08-11 16:04] LABS: Basophils # 0.1 K/mcL (0.0-0.2); Basophils % 0.2 %; Hemoglobin 13.9 g/dL (11.5-15.4); Lymphocytes # 0.4 K/mcL (0.6-4.6); Lymphocytes % 1.3 %; Mean Corpuscular HGB Conc 31.6 g/dL (31.6-35.5); Mean Corpuscular Volume 107.6 fL (83.0-100.0); Mean Platelet Volume 9.7 fL (9.4-12.4); Monocytes # 1.7 K/mcL (0.0-1.3); Monocytes % 5.1 %; Neutrophils # 30.5 K/mcL (1.6-8.9); Platelet Count 240 K/mcL (140-400); Red Blood Count 4.09 M/mcL (3.82-4.97); Red Cell Distribution Width 12.5 % (11.5-14.5); Segmented Neutrophils % 92.4 %
[2021-08-11 16:21] LABS: Platelet Estimate Normal (Normal)
[2021-08-11 16:24] LABS: Alanine Aminotransferase 11 Units/L (7-52); Albumin 4.4 g/dL (3.5-5.7); Albumin/Globulin Ratio 1.3 (1.1-2.2); Alkaline Phosphatase 91 Units/L (34-104); Aspartate Amino Transferase 18 Units/L (13-39); BUN/Creatinine Ratio 18 (6-26); Bilirubin,Direct 0.1 mg/dL (0.0-0.2); Bilirubin,Indirect 0.1 mg/dL (0.0-1.0); Bilirubin,Total 0.2 mg/dL (0.3-1.0); Blood Urea Nitrogen 14 mg/dL (6-20); Calcium 9.1 mg/dL (8.6-10.3); Carbon Dioxide 33 mEq/L (23-29); Chloride 98 mEq/L (98-107); Ethanol < 10 mg/dL (Less than 10); Globulin 3.3 g/dL (2.4-3.5); Glucose 161 mg/dL (70-105); Osmolality,Calculated 284 (280-300); Potassium 4.8 mEq/L (3.5-5.1); Sodium 135 mEq/L (136-145); Total Protein 7.7 g/dL (6.4-8.9); Troponin I 0.09 ng/mL (< 0.04); eGFR For African Americans > 60 (> 60); eGFR For Non-African Americans > 60 (> 60)
[2021-08-11] MEDS ORDERED: cefTRIAXone 1,000 MG in 0.9 % Sodium Chloride Mini Bag 100 ML IVPB ONE (16:32)
[2021-08-11 16:57] LABS: ABG Base Excess -1 mEq/L (-2 to 3); ABG HCO3 30 mEq/L (21-27); ABG Oxygen Saturation 94 % (95-98); ABG PCO2 85 mmHg (35-45); ABG PH 7.16 pH Units (7.32-7.45); ABG PO2 95 mmHg (85-104); ABG TCO2 33 mEq/L (20-26)
[2021-08-11] MEDS ORDERED: Ondansetron 4 MG/2 ML VIAL IVP ONE (17:32)
[2021-08-11] MEDS ORDERED: methylPREDNISolone 125 MG/2 ML VIAL IVP ONE (18:05)
[2021-08-11 18:30] LABS: ABG Base Excess 1 mEq/L (-2 to 3); ABG HCO3 31 mEq/L (21-27); ABG Oxygen Saturation 100 % (95-98); ABG PCO2 73 mmHg (35-45); ABG PH 7.23 pH Units (7.32-7.45); ABG PO2 239 mmHg (85-104); ABG TCO2 33 mEq/L (20-26)
[2021-08-11] MEDS ORDERED: Melatonin 3 MG TABLET PO PRN (21:00)
[2021-08-11] MEDS ORDERED: 0.9 % Sodium Chloride 1,000 ML IVC SCH (21:00)
[2021-08-11] MEDS ORDERED: Naloxone 0.4 MG/ML INJ IVP PRN (21:00)
[2021-08-11 21:01] LABS: Influenza A PCR Negative (Negative); Influenza B PCR Negative (Negative); Resp. Syncytial Virus PCR Negative (Negative); SARS-CoV-2 by PCR (In House) Negative (Negative)
[2021-08-11] MEDS ORDERED: Ipratropium 1 PUFF INHALER IH PRN (21:10)
[2021-08-11] MEDS: Budesonide/Formoterol 160/4.5 1 PUFF INH IH SCH (22:33)
[2021-08-11 22:51] LABS: ABG Base Excess 1 mEq/L (-2 to 3); ABG HCO3 32 mEq/L (21-27); ABG Oxygen Saturation 95 % (95-98); ABG PCO2 84 mmHg (35-45); ABG PH 7.19 pH Units (7.32-7.45); ABG PO2 100 mmHg (85-104); ABG TCO2 35 mEq/L (20-26); Blood Gas Modality S/T
[2021-08-11] MEDS ORDERED: Perflutren Lipid Microsphere 1.3 ML in 0.9 % Sodium Chloride 8.7 ML IVP PRN (23:57)
[2021-08-11] MEDS ORDERED: *HR* Heparin 5,000 UNIT/ML VIAL IVP PRN ×2 (23:58)
[2021-08-11] MEDS ORDERED: *HR* Heparin 5,000 UNIT/ML VIAL IVP ONE (23:58)
[2021-08-12] MEDS: Heparin 25,000UNIT/250ML 1/2NS 25,000 UNIT/250 ML IV.SOLN IVC SCH (00:52)
[2021-08-12] MEDS: MethylPREDNISolone 40 MG/ML VIAL IVP SCH ×4 (01:01→23:08)
[2021-08-12] MEDS: Ipratropium/Albuterol Neb 3 ML IH SCH ×7 (02:21→23:50)
[2021-08-12 04:10] LABS: ABG Base Excess 2 mEq/L (-2 to 3); ABG HCO3 34 mEq/L (21-27); ABG Oxygen Saturation 99 % (95-98); ABG PCO2 93 mmHg (35-45); ABG PH 7.17 pH Units (7.32-7.45); ABG PO2 153 mmHg (85-104); ABG TCO2 37 mEq/L (20-26); Blood Gas Modality AVAPS; Blood Gas VT 500 cc
[2021-08-12 05:08] LABS: Basophils % 0.1 %; Mean Corpuscular Volume 108.1 fL (83.0-100.0); Mean Platelet Volume 9.8 fL (9.4-12.4)
[2021-08-12 05:09] LABS: Hematocrit 37.3 % (35.3-44.9); Hemoglobin 11.9 g/dL (11.5-15.4); Immature Granulocytes % 0.8 % (0-4); Lymphocytes # 0.4 K/mcL (0.6-4.6); Lymphocytes % 1.4 %; Mean Corpuscular HGB Conc 31.9 g/dL (31.6-35.5); Mean Corpuscular Hemoglobin 34.5 pg (28.0-33.3); Monocytes # 0.6 K/mcL (0.0-1.3); Monocytes % 2.1 %; Neutrophils # 27.3 K/mcL (1.6-8.9); Platelet Count 184 K/mcL (140-400); Red Blood Count 3.45 M/mcL (3.82-4.97); Red Cell Distribution Width 12.5 % (11.5-14.5); Segmented Neutrophils % 95.6 %; White Blood Count 28.5 K/mcL (4.3-11.1)
[2021-08-12 05:18] LABS: INR 1.1; Prothrombin Time 12.2 Seconds (9.4-12.1)
[2021-08-12 05:20] LABS: Activated Partial Thrombo Time 79.5 Seconds (26.0-36.0)
[2021-08-12] MEDS ORDERED: Dexmedetomidine HCl 400 MCG/100 ML MLS IVC ONE (05:26)
[2021-08-12 05:29] LABS: Alanine Aminotransferase 8 Units/L (7-52); Albumin 3.6 g/dL (3.5-5.7); Albumin/Globulin Ratio 1.2 (1.1-2.2); Alkaline Phosphatase 80 Units/L (34-104); Aspartate Amino Transferase 15 Units/L (13-39); BUN/Creatinine Ratio 19 (6-26); Bilirubin,Total 0.2 mg/dL (0.3-1.0); Blood Urea Nitrogen 11 mg/dL (6-20); Calcium 8.2 mg/dL (8.6-10.3); Carbon Dioxide 30 mEq/L (23-29); Chloride 101 mEq/L (98-107); Chol/HDL Ratio 2.5 (0-4.9); Cholesterol 167 mg/dL (< 200); Globulin 3.1 g/dL (2.4-3.5); Glucose 159 mg/dL (70-105); HDL Cholesterol 67 mg/dL (40-59); LDL Cholesterol,Calculated 74 mg/dL (< 100); Magnesium 1.9 mg/dL (1.6-2.6); Osmolality,Calculated 283 (280-300); Phosphorous 2.4 mg/dL (2.7-4.5); Potassium 4.9 mEq/L (3.5-5.1); Sodium 135 mEq/L (136-145); Total Protein 6.7 g/dL (6.4-8.9); Triglycerides 132 mg/dL (< 150); eGFR For African Americans > 60 (> 60); eGFR For Non-African Americans > 60 (> 60)
[2021-08-12] MEDS ORDERED: Artificial Tears SOLN 15 ML BOTTLE BOTH EYES PRN (05:39)
[2021-08-12] MEDS ORDERED: MethylPREDNISolone 40 MG/ML VIAL IVP SCH (06:00)
[2021-08-12] MEDS: Dexmedetomidine HCl 400 MCG/100 ML MLS IVC SCH (06:05)
[2021-08-12 06:22] LABS: ABG Base Excess 3 mEq/L (-2 to 3); ABG HCO3 32 mEq/L (21-27); ABG Oxygen Saturation 92 % (95-98); ABG PCO2 70 mmHg (35-45); ABG PH 7.27 pH Units (7.32-7.45); ABG PO2 74 mmHg (85-104); ABG TCO2 34 mEq/L (20-26); Blood Gas VT 450 cc
[2021-08-12] MEDS: Budesonide/Formoterol 160/4.5 1 PUFF INH IH SCH ×2 (07:43→19:48)
[2021-08-12] MEDS ORDERED: Cefepime HCl 2,000 MG in 0.9 % Sodium Chloride Mini Bag 100 ML IVPB SCH (08:00)
[2021-08-12] MEDS ORDERED: Vancomycin 1,250 MG/262.5 ML IV.SOLN IVPB SCH (08:00)
[2021-08-12] MEDS ORDERED: Artificial Tears SOLN 15 ML BOTTLE BOTH EYES SCH (08:00)
[2021-08-12] MEDS: Chlorhexidine Rinse 15 ML MOUTHWASH MM SCH ×2 (09:03→20:14)
[2021-08-12] MEDS: Pantoprazole 40 MG VIAL IVP SCH (09:03)
[2021-08-12] MEDS ORDERED: *HR* Etomidate 20 MG/10 ML AMPUL IVP ONE (11:30)
[2021-08-12] MEDS ORDERED: *HR* Rocuronium Bromide 50 MG/5 ML VIAL IVP ONE (11:30)
[2021-08-12] MEDS ORDERED: *HR* Midazolam HCl 5 MG/5 ML VIAL IVP ONE (11:30)
[2021-08-12] MEDS: Norepinephrine 4 MG/254 ML IV.SOLN IVC SCH (12:13)
[2021-08-12] MEDS: Doxycycline 100 MG CAPSULE PO SCH ×2 (12:37→20:14)
[2021-08-12] MEDS: Ondansetron 4 MG/2 ML VIAL IVP PRN (13:34)
[2021-08-12] MEDS: Acetaminophen 325 MG TABLET PO PRN (14:50)
[2021-08-12] MEDS ORDERED: Ipratropium/Albuterol Neb 3 ML ONE (16:24)
[2021-08-12] MEDS: Aspirin Enteric Coated 81 MG Tablet PO SCH (17:11)
[2021-08-12] MEDS: Cefuroxime PO 500 MG TABLET PO SCH (17:12)
[2021-08-12] MEDS ORDERED: Isovue-370 500 ML BOTTLE IVP ONE (17:35)
[2021-08-12] MEDS ORDERED: ALPRAZolam 1 MG TABLET PO ONE (20:30)
[2021-08-13 03:36] LABS: VBG Ionized Calcium 1.15 mmol/L (1.15-1.35)
[2021-08-13] MEDS: Ipratropium/Albuterol Neb 3 ML IH SCH ×6 (03:38→23:17)
[2021-08-13 03:41] LABS: Hematocrit 32.7 % (35.3-44.9); Hemoglobin 10.4 g/dL (11.5-15.4); Mean Corpuscular HGB Conc 31.8 g/dL (31.6-35.5); Mean Corpuscular Volume 103.8 fL (83.0-100.0); Mean Platelet Volume 9.9 fL (9.4-12.4); Platelet Count 181 K/mcL (140-400); Red Blood Count 3.15 M/mcL (3.82-4.97); Red Cell Distribution Width 12.4 % (11.5-14.5); White Blood Count 14.6 K/mcL (4.3-11.1)
[2021-08-13 04:00] LABS: Alanine Aminotransferase 8 Units/L (7-52); Albumin 3.2 g/dL (3.5-5.7); Albumin/Globulin Ratio 1.2 (1.1-2.2); Alkaline Phosphatase 60 Units/L (34-104); Aspartate Amino Transferase 12 Units/L (13-39); BUN/Creatinine Ratio 28 (6-26); Bilirubin,Total 0.2 mg/dL (0.3-1.0); Blood Urea Nitrogen 19 mg/dL (6-20); Calcium 8.4 mg/dL (8.6-10.3); Carbon Dioxide 34 mEq/L (23-29); Chloride 100 mEq/L (98-107); Globulin 2.7 g/dL (2.4-3.5); Glucose 140 mg/dL (70-105); Magnesium 1.8 mg/dL (1.6-2.6); Osmolality,Calculated 289 (280-300); Potassium 4.1 mEq/L (3.5-5.1); Sodium 137 mEq/L (136-145); Total Protein 5.9 g/dL (6.4-8.9); eGFR For African Americans > 60 (> 60); eGFR For Non-African Americans > 60 (> 60)
[2021-08-13] MEDS: Norepinephrine 4 MG/254 ML IV.SOLN IVC SCH ×2 (05:15→12:57)
[2021-08-13] MEDS: Heparin 25,000UNIT/250ML 1/2NS 25,000 UNIT/250 ML IV.SOLN IVC SCH (05:15)
[2021-08-13] MEDS: Dexmedetomidine HCl 400 MCG/100 ML MLS IVC SCH (05:16)
[2021-08-13] MEDS: Cefuroxime PO 500 MG TABLET PO SCH ×2 (05:39→19:00)
[2021-08-13] MEDS: Pantoprazole 40 MG VIAL IVP SCH (07:50)
[2021-08-13] MEDS: MethylPREDNISolone 40 MG/ML VIAL IVP SCH ×3 (07:51→23:13)
[2021-08-13] MEDS: Doxycycline 100 MG CAPSULE PO SCH ×2 (07:51→21:18)
[2021-08-13] MEDS: Chlorhexidine Rinse 15 ML MOUTHWASH MM SCH ×2 (07:51→21:19)
[2021-08-13] MEDS: Aspirin Enteric Coated 81 MG Tablet PO SCH (07:51)
[2021-08-13] MEDS: Budesonide/Formoterol 160/4.5 1 PUFF INH IH SCH ×2 (07:52→19:51)
[2021-08-13] MEDS: Ondansetron 4 MG/2 ML VIAL IVP PRN (08:49)
[2021-08-13] MEDS ORDERED: Ringers Solution, Lactated 500 ML ONE ×2 (10:52→11:34)
[2021-08-13] MEDS ORDERED: Ringers Solution, Lactated 500 ML IVC ONE ×2 (11:47→11:48)
[2021-08-13] MEDS ORDERED: *HR* LORazepam 1 MG TABLET PO SCH (15:00)
[2021-08-13] MEDS: ALPRAZolam 1 MG TABLET PO SCH (21:19)
[2021-08-13] MEDS: Acetaminophen 325 MG TABLET PO PRN (23:13)
[2021-08-14] MEDS: Heparin 25,000UNIT/250ML 1/2NS 25,000 UNIT/250 ML IV.SOLN IVC SCH (01:47)
[2021-08-14] MEDS: Ipratropium/Albuterol Neb 3 ML IH SCH ×3 (03:45→10:49)
[2021-08-14] MEDS: Cefuroxime PO 500 MG TABLET PO SCH (05:58)
[2021-08-14] MEDS: Dexmedetomidine HCl 400 MCG/100 ML MLS IVC SCH (05:59)
[2021-08-14] MEDS: Norepinephrine 4 MG/254 ML IV.SOLN IVC SCH (07:19)
[2021-08-14] MEDS: Pantoprazole 40 MG VIAL IVP SCH (07:38)
[2021-08-14] MEDS: MethylPREDNISolone 40 MG/ML VIAL IVP SCH (07:38)
[2021-08-14] MEDS: Budesonide/Formoterol 160/4.5 1 PUFF INH IH SCH (07:40)
[2021-08-14 07:57] VITALS: TEMP 98
[2021-08-14] MEDS ORDERED: *HR* Enoxaparin 40 MG/0.4 ML SYRINGE SQ ONE (08:29)
[2021-08-14] MEDS: Doxycycline 100 MG CAPSULE PO SCH (08:42)
[2021-08-14] MEDS: Aspirin Enteric Coated 81 MG Tablet PO SCH (08:42)
[2021-08-14] MEDS: Acetaminophen 325 MG TABLET PO PRN (08:42)
[2021-08-14] MEDS: ALPRAZolam 1 MG TABLET PO SCH (08:42)
[2021-08-14] MEDS: Chlorhexidine Rinse 15 ML MOUTHWASH MM SCH (08:43)
[2021-08-14] MEDS ORDERED: Metoprolol XL (24 HR) Succ 25 MG TAB.ER.24H PO SCH (09:00)
[2021-08-14] MEDS ORDERED: predniSONE 20 MG TABLET PO SCH (09:00)
[2021-08-14 09:01] LABS: VBG HCO3 29 mEq/L (21-27); VBG PCO2 46 mmHg (41-51); VBG PH 7.41 pH Units (7.32-7.42); VBG PO2 91 mmHg (25-50)
[2021-08-14 09:07] LABS: Hematocrit 33.1 % (35.3-44.9); Hemoglobin 10.9 g/dL (11.5-15.4); Mean Corpuscular HGB Conc 32.9 g/dL (31.6-35.5); Mean Corpuscular Hemoglobin 33.2 pg (28.0-33.3); Mean Corpuscular Volume 100.9 fL (83.0-100.0); Mean Platelet Volume 9.6 fL (9.4-12.4); Platelet Count 207 K/mcL (140-400); Red Blood Count 3.28 M/mcL (3.82-4.97); Red Cell Distribution Width 12.4 % (11.5-14.5); White Blood Count 11.1 K/mcL (4.3-11.1)
[2021-08-14 09:19] LABS: BUN/Creatinine Ratio 35 (6-26); Blood Urea Nitrogen 24 mg/dL (6-20); Calcium 8.5 mg/dL (8.6-10.3); Carbon Dioxide 29 mEq/L (23-29); Chloride 101 mEq/L (98-107); Glucose 132 mg/dL (70-105); Magnesium 1.8 mg/dL (1.6-2.6); Osmolality,Calculated 294 (280-300); Potassium 3.6 mEq/L (3.5-5.1); Sodium 139 mEq/L (136-145); eGFR For African Americans > 60 (> 60); eGFR For Non-African Americans > 60 (> 60)
[2021-08-14 10:56] VITALS: O2SAT 94
[2021-08-14 11:48] VITALS: BP 144/89; PULSE 79
[2021-08-15] MEDS ORDERED: *HR* Enoxaparin 40 MG/0.4 ML SYRINGE SQ SCH (06:00)
== END 2021-08-14 13:19 | disposition home or self-care (01) | DRG 720 ==
LOC: EMEROOARM 15:05 → 2NNU 15:05 → SUATTDRO 19:58 → 2NNU 21:20 → ICNU 08-12 05:27 → 2ANU 08-13 17:21
PROVIDERS: ADMIT Internal Medicine; ATTEND Internal Medicine